=== PATIENT | male | born 1990 | race Caucasian/White ===

== ENCOUNTER 2025-07-25 12:49 | Inpatient (IN) | payer MEDICAID, SELFPAY ==
--- NOTE | 2025-07-25 | XR_ITS ---
Examinations: MRI Brain without intravenous contrast. MRA brain without intravenous contrast. MRA carotids without intravenous contrast 3-D vascular reconstructions Date and time of exam: July 25, 2025, 1845 hrs. Indication: Dizziness and balance issues this week, CT stroke alert today Technique: Multiple axial and sagittal images of the brain have been obtained MRA brain carotid images without contrast obtained, including 3-D postprocessing, vascular maximum intensity projection images Findings: Sellaturcica is not enlarged. The optic chiasm and infundibular stalk are not remarkable. Prepontine and interpeduncular cisterns are not enlarged. No localized enlargement of the medulla or estuardo. Fourth ventricle and cerebellar tonsils normal in position. Subacute hemorrhage is not seen. Fourth ventricle is midline. Mass in the cerebellopontine angle region is not evident. 7th and 8th nerve complexes exhibits symmetry. Globes are symmetrical with no retro-orbital mass. Increased white matter signal evident, a few scattered punctate foci of increased signal in the cerebral white matter and adjacent to the right frontal horn Diffusion-weighted images demonstrate no focus of restricted diffusion Mass-effect upon the ventricular system is not identified. MRA carotid images no carotid stenoses. MRA brain images no cerebral large vessel occlusions Impression: Negative for acute hemorrhage, mass effect or midline shift No acute infarct Scattered foci increased signal in the cerebral white matter, demyelinating disease pattern, recommend neurology consultation and correlation with clinical findings No carotid stenoses No cerebral large vessel arterial occlusions
[2025-07-25 12:58] VITALS: BP 119/95; PULSE 89; PULSE 96; RESP 18; TEMP 36.6; O2SAT 99
--- NOTE | 2025-07-25 12:58 | XR_ITS ---
Examination: CTA carotids with intravenous contrast CTA brain, head with intravenous contrast. 2-D sagittal, coronal reconstructions. 3-D reconstructions. Exam date and time: July 25, 2025 1321 hours INDICATIONS: Stroke alert today, onset focal neurologic deficit including altered mental status, slurred speech CTDI: vol (mGy) 47.9 DLP: (mGycm) 514 Technique: Multiple CTA axial brain, head carotid images post intravenous contrast injection 75 cc, Isovue-370. 2-D sagittal, coronal reconstructions. 3-D reconstructions, 3-D post processing including vascular maximum intensity projection images. Low dose protocols were performed. One or more of the following dose reduction techniques were used; automated exposure control, adjustment of the mA and/or KV according to patient size, use of iterative reconstruction technique. Findings: No significant common carotid carotid bifurcation or internal carotid artery stenoses Dominant left vertebral artery in the neck with no critical stenoses No cerebral large vessel arterial occlusions or thrombus IMPRESSION: No significant neck arterial stenoses No cerebral large vessel arterial occlusions or thrombus
--- NOTE | 2025-07-25 12:58 | XR_ITS ---
Examination: CT brain head without contrast. 2-D sagittal coronal reconstructions Date and time of exam:July 25, 2025 1310 hours, comparison October 01, 2022 INDICATIONS: Stroke alert, onset focal neurologic deficit today including slurred speech CTDI: vol (mGy):55.3 DLP: (mGycm):1141 Technique: Multiple CT axial sections of the brain have been obtained, 5 mm slice thickness. Contrast has not been administered. 2-D sagittal, coronal reconstructions have been obtained Low dose protocols were performed. One or more of the following dose reduction techniques were used; automated exposure control, adjustment of the mA and/or KV according to patient size, use of iterative reconstruction technique. Findings: No significant ventricular enlargement. Intra-axial or extra-axial hemorrhage density is not seen. No mass effect or midline shift Basal cisterns are not remarkable. Fourth ventricle is midline. Cranial vault intact. Impression: Negative for acute hemorrhage, mass effect or midline shift
[2025-07-25 12:59] VITALS: BMI 31.8
[2025-07-25 13:08] VITALS: PULSE 83; RESP 16; O2SAT 98
--- NOTE | 2025-07-25 13:12 | EDNOTE_ITS ---
ED Weakness RME/HPI General Chief complaint: Weakness Stated complaint: WEAKNESS Time Seen by Provider: 07/25/25 12:58 Arrival date/time: 07/25/25 12:49 Limitations: no limitations RME / HPI RME / HPI Narrative: 35 year old male with history of hypothyroidism, schizoaffective disorder presents to the ED BIBA from [facility] for evaluation of new onset global weakness, lethargy, dizziness, and off-balance beginning ~ 1.5 hours [employer]. Per caregiver/staff, the patient was at his usual state of health at 08:30 AM today prior to going to work. States when he returned at 11:30 AM, the patient required assistance walking. State at baseline the patient is able to ambulate without assistance. Caregiver mentioned the patient is on multiple psychiatric medications and evaluated by on-site provider (Dr. Esparza) who was concerned for anticholinergic syndrome. Related Data Allergies Allergy/AdvReac Type Severity Reaction Status Date / Time nystatin Allergy Verified 10/01/22 20:44 Penicillins Allergy Verified 10/01/22 20:44 Review of Systems Review of Systems Systems Reviewed: All systems reviewed, normal except as documented Past Medical History Past Medical History CARDIAC: Positive Hypercholesterolemia ENDOCRINE: Positive Hypothyroidism PSYCHO/SOCIAL: Positive Schizophrenia and Bipolar Disorder Social History SMOKING STATUS: Unknown if ever smoked ED Exam General Limitations: Present no limitations General appearance: Present alert, in no apparent distress and other (patient noted to have trouble supporting his trunk and leaning to the left side ) Head Head exam: Present atraumatic and normocephalic Eye Eye exam: Present normal appearance, PERRL and EOMI ENT ENT exam: Present normal exam, normal oropharynx and mucous membranes moist Neck Neck exam: Present normal inspection, full ROM and trachea midline Chest Chest inspection: Present normal inspection and symmetric chest wall rise Respiratory Respiratory exam: Present normal lung sounds bilaterally Cardiovascular Cardiovascular exam: Present regular rate, normal rhythm and normal heart sounds Abdominal Exam Abdominal exam: Present soft and normal bowel sounds Extremities Exam Extremities exam: Present normal inspection and full ROM Back Exam Back exam: Present normal inspection and full ROM Neurological Exam Neurological exam: Present alert (oriented x1), CN II-XII intact and other (answers questions, bilateral tremors, strength of upper and lower extremities are 5/5, did not test DTR or sensory, patient noted to have trouble supporting his trunk and leaning to the left side ) Skin Skin exam: Present warm, dry, intact and normal color Course Quality Measures Suspected type of Stroke: Non Acute Last known well (date): 07/25/25 Last known well (time): 08:30 Tenecteplase given: Reason(s) TPA not given: Outside the time window not given stroke Orders Category Date Time Status Bedside Blood Glucose NOW Care 07/25/25 12:58 Active Eyeglass Frames Polisher NOW Care 07/25/25 12:58 Active Continuous Pulse Oximetry NOW Care 07/25/25 12:58 Completed Insert IV NOW Care 07/25/25 12:58 Active NIH Stroke Scale now Care 07/25/25 12:58 Active NPO NOW Care 07/25/25 12:58 Active Neuro Check Q15MIN Care 07/25/25 12:58 Active Nurse Swallow Screen x1 Care 07/25/25 12:58 Active Consult to Neurology / Tele-Neurology Routine Cons 07/25/25 12:[address] angio stroke protocol Stat Exams 07/25/25 12:[address] stroke protocol Stat Exams 07/25/25 12:58 Completed Alcohol, Blood Medical Stat Lab 07/25/25 13:03 Received CBC Stat Lab 07/25/25 13:03 Completed Comprehensive Metabolic Panel Stat Lab 07/25/25 13:03 Received Drug Screen,Urine Stat Lab 07/25/25 12:58 Ordered Magnesium Stat Lab 07/25/25 13:03 Received Partial Thromboplastin Time Stat Lab 07/25/25 13:03 Completed Prothrombin Time with INR Stat Lab 07/25/25 13:03 Completed Troponin I Stat Lab 07/25/25 13:03 Received Urinalysis Stat Lab 07/25/25 12:58 Ordered Sodium Chloride 0.9% 1000 ml [Ns] 1,000 ml Med 07/25/25 13:00 Active IV Q10H Vital Signs Vital signs: Vital Signs Pulse Rate 89 07/25/25 12:58 Weakness MDM Narrative MDM Narrative:: Jesenia Mckeon am scribing for and in the presence of Dr. Thurman. 35 year old male with history of hypothyroidism, schizoaffective disorder presents to the ED BIBA from [facility] for evaluation of new onset global weakness, lethargy, dizziness, and off-balance beginning ~ 1.5 hours [employer]. Patient was last known well at 08:30AM and returned to [facility] at 11:30 AM where they noted the symptoms. Patient is on multiple psych medications and symptoms today could be anticholinergic syndrome due to medications vs metabolic encephalopathy vs CVA. Patient data External records reviewed:: [facility] previous records (I reviewed ED visit on 10/01/2022 ) and EMS form Clinical information provided by:: patient, EMS and restaurant lead Social determinants that could affect healthcare access:: mental health Patient has the following chronic illnesses:: hypothyroidism, schizoaffective disorder How is presenting disease/condition affected by chronic disease/condition?: exacerbated by Evaluation data The following diagnostics were reviewed and interpreted by me:: lab results and radiology exam(s) Lab and/or radiology exams considered but not ordered:: None Interpretation Summary: Ordering Physician: Mingo Thurman MD Date of Service: 07/25/25 Procedure(s): CT stroke protocol Accession Number(s): [id number] cc: Mingo Thurman MD; Yogi Pavon MD~ Examination: CT brain head without contrast. 2-D sagittal coronal reconstructions Date and time of exam:July 25, 2025 1310 hours, comparison October 01, 2022 INDICATIONS: Stroke alert, onset focal neurologic deficit today including slurred speech CTDI: vol (mGy):55.3 DLP: (mGycm):1141 Technique: Multiple CT axial sections of the brain have been obtained, 5 mm slice thickness. Contrast has not been administered. 2-D sagittal, coronal reconstructions have been obtained Low dose protocols were performed. One or more of the following dose reduction techniques were used; automated exposure control, adjustment of the mA and/or KV according to patient size, use of iterative reconstruction technique. Findings: No significant ventricular enlargement. Intra-axial or extra-axial hemorrhage density is not seen. No mass effect or midline shift Basal cisterns are not remarkable. Fourth ventricle is midline. Cranial vault intact. Impression: Negative for acute hemorrhage, mass effect or midline shift Dictated By: Yogi Pavon MD Signed By: <Electronically signed by Yogi Pavon MD in OV> 07/25/25 1315 Ordering Physician: Mingo Thurman MD Date of Service: 07/25/25 Procedure(s): CT angio stroke protocol Accession Number(s): [id number] cc: Mingo Thurman MD; Yogi Pavon MD~ Examination: CTA carotids with intravenous contrast CTA brain, head with intravenous contrast. 2-D sagittal, coronal reconstructions. 3-D reconstructions. Exam date and time: July 25, 2025 1321 hours INDICATIONS: Stroke alert today, onset focal neurologic deficit including altered mental status, slurred speech CTDI: vol (mGy) 47.9 DLP: (mGycm) 514 Technique: Multiple CTA axial brain, head carotid images post intravenous contrast injection 75 cc, Isovue-370. 2-D sagittal, coronal reconstructions. 3-D reconstructions, 3-D post processing including vascular maximum intensity projection images. Low dose protocols were performed. One or more of the following dose reduction techniques were used; automated exposure control, adjustment of the mA and/or KV according to patient size, use of iterative reconstruction technique. Findings: No significant common carotid carotid bifurcation or internal carotid artery stenoses Dominant left vertebral artery in the neck with no critical stenoses No cerebral large vessel arterial occlusions or thrombus IMPRESSION: No significant neck arterial stenoses No cerebral large vessel arterial occlusions or thrombus Dictated By: Yogi Pavon MD Signed By: <Electronically signed by Yogi Pavon MD in OV> 07/25/25 1340 Medications / Prescriptions Medications or Prescriptions considered but not ordered:: None Medication administrations:: Medication Administration History Sodium Chloride (Ns) 1,000 mls @ 50 mls/hr IV Q10H KRISTEN Stop: 08/24/25 12:59 See above Consultations Consultation(s) initiated? (list below): Yes Consultation #1 (Physician, Specialty, Details): I spoke with teleneurologist Dr. Cole. States patient is not a TNK candidate, LKW > 4.5 hours. States a posterior stroke cannot be ruled out and recommends MRI brain. Also recommends toxic/metabolic work-up. Time: 13:47 Diagnosis Weakness Differential Diagnosis: hypoglycemia, hypothyroidism, sepsis, dehydration and other (CVA) Most likely diagnosis given after review of the tests above:: CVA vs TIA Admission Indicated Admission indicated?: indicated Admission Request Was there a request for admission?: Yes Admission Attestation Admission request attestation: Discussed case with [] from Hospitalist service regarding admission. Discussed patients ED course, exam findings, labs, and radiology results. The Hospitalist [agrees,declines] to accept the patient for admission. Disposition Plan Disposition Plan: Admit Discharge Plan Plan Patient Disposition: Admit Acute Care w/in Hospital Problem List Clinical Impression: CVA (cerebral vascular accident) Patient/Caregiver Discharge Instructions Print Language: Estonian Stand Alone Forms: Jaleesa Award Info., Patient Portal Info Letter
[2025-07-25 13:24] LABS: Basophils # (Auto) 0.1 Thou/mm3 (0.0-0.2); Basophils % (Auto) 1 % (0-2.5); Eosinophils # (Auto) 0.3 Thou/mm3 (0.0-0.5); Eosinophils % (Auto) 4 % (0-10); Hematocrit 43.1 % (41.0-53.0); Hemoglobin 13.8 g/dL (13.5-16.0); Immature Granulocytes Auto 0.03 Thou/mm3 (0.00-0.00); Lymphocytes # (Auto) 1.2 Thou/mm3 (1.0-4.8); Lymphocytes % (Auto) 16 % (10-50); Mean Corpuscular HGB Conc 32.0 g/dl (31.0-37.0); Mean Corpuscular Hemoglobin 30.4 pg (25.0-35.0); Mean Corpuscular Volume 95 fL (80-100); Monocytes # (Auto) 0.7 Thou/mm3 (0.0-0.8); Monocytes % (Auto) 10 % (0-12); Neutrophils # (Auto) 4.9 Thou/mm3 (1.8-7.7); Neutrophils % (Auto) 69 % (37-80); Nucleated Red Blood Cell # 0.00 Thou/mm3 (0.00-0.00); Nucleated Red Blood Cell % 0 /100 WBC (0); Platelet Count 176 Thou/mm3 (140-440); RDW Standard Deviation 42.9 fL (35.1-43.9); Red Blood Count 4.54 Miln/mm3 (4.50-5.90); White Blood Count 7.2 Thou/mm3 (3.8-10.6)
--- NOTE | 2025-07-25 13:38 | PD.TNEURO ---
Tele Neuro Consultation Consultation Date 07/25/25 Most Recent Vital Signs Last Vital Signs Pulse 89 07/25/25 12:58 Consultation Narrative [facility] Tele[facility]urology Consult Services Patient Name:???ERNESTINE WOOTEN Date of :???1990 Identification Number:??? Date of Service:???07/25/2025 13:01:00 Diagnosis:?G93.49 - Encephalopathy Multifactorial ?I63.81 - Cerebrovascular accident (CVA) due to occlusion of small artery Impression: ?Pt presents with acute onset dizziness causing imbalance and altered mental status since this morning. He is outside the time window for thrombolytics. Clinical picture is consistent with toxic/metabolic etiology particularly given negative myoclonus seen on non-focal examination. Of note, pt's physician at his facility suspects Ach crisis. Cannot completely rule out acute posterior circulation compromise. Therefore would recommend MRI brain to rule out acute ischemia alongside toxic/metabolic work-up. Our recommendations are outlined below. Recommendations: ? Stroke/Telemetry Floor ? Neuro Checks (Q4) ? Bedside Swallow Eval ? DVT Prophylaxis ? IV Fluids, Normal Saline ? Head of Bed 30 Degrees ? Euglycemia and Avoid Hyperthermia (PRN Acetaminophen) ? Initiate or continue Aspirin 81 MG daily ? Antihypertensives PRN if Blood pressure is greater than 220/120 or there is a concern for End organ damage/contraindications for permissive HTN. If blood pressure is greater than 220/120 give labetalol PO or IV or Vasotec IV with a goal of 15% reduction in BP during the first 24 hours. Sign Out: ? Discussed with Emergency Department Provider Advanced Imaging:CTA Head and Neck Completed. LVO:No Patient is not a candidate for TSERING Metrics: Last Known Well: 07/25/2025 08:30:13 Dispatch Time: 07/25/2025 13:00:59 Arrival Time: 07/25/2025 12:29:33 Initial Response Time: 07/25/2025 13:02:50Symptoms: dizziness, unsteady gait and altered mental status. Initial patient interaction: 07/25/2025 13:12:23 NIHSS Assessment Completed: 07/25/2025 13:15:53Patient is not a candidate for Thrombolytic. Thrombolytic Medical Decision: 07/25/2025 13:15:54Patient was not deemed candidate for Thrombolytic because of following reasons: LKW outside 4.5 hr window. . other diagnosis suspected toxic/metabolic encephalopathy suspected. CT Head: I personally reviewed all the CT images that were available to me and it showed: no hemorrhage, no acute findings per radiology Primary Provider Notified of Diagnostic Impression and Management Plan on: 07/25/2025 13:52:01 History of Present Illness:Patient is a 35 year old Male. Patient was brought by EMS for symptoms of dizziness, unsteady gait and altered mental status. Pt is coming from a intermediate for cognitive delay. He is a 35M h/o schizoaffective d/o. Today he experienced new onset dizziness, imbalance and decreased level of consciousness. The doctor at the intermediate has a concern for anticholinergic OD. LKW 8:30am pt had to come back early from the group he was in. Upon arrival due to dizziness that is new, stroke alert was called. Pt has never had a stroke before. Pt reports that he's here because of foot pain. The facility physician reports that pt leans to the L at baseline, the etiology is unknown. Pt does report persistent vertigo since this AM that is not resolving. ? Past Medical History: ?Migraine Headaches ?There is no history of Hypertension ?There is no history of Diabetes Mellitus ?There is no history of Hyperlipidemia ?There is no history of Atrial Fibrillation ?There is no history of Coronary Artery Disease ?There is no history of Stroke ?There is no history of Seizures Other PMH:? hypothyroidism ?schizoaffective disorder Medications: No Anticoagulant use? No Antiplatelet use Reviewed EMR for current medications Other Medications Pertinent To Assessment Include: levothyroixine, citalopram, clorazapine, depkote, Li, olanzapine, benztropine, loratidine Allergies:? NKDA Social History: Smoking: No Alcohol Use: No Drug Use: No Family History: There is no family history of premature cerebrovascular disease pertinent to this consultation ROS : 14 Points Review of Systems was performed and was negative except mentioned in HPI. Past Surgical History: There Is No Surgical History Contributory To Today?s Visit ? Examination: BP(118/76),?Pulse(88),?Blood Glucose(88) 1A: Level of Consciousness - Arouses to minor stimulation?+ 1 1B: Ask Month and Age - Could Not Answer Either Question Correctly?+ 2 1C: Blink Eyes & Squeeze Hands - Performs Both Tasks?+ 0 2: Test Horizontal Extraocular Movements - Normal?+ 0 3: Test Visual Luna - No Visual Loss?+ 0 4: Test Facial Palsy (Use Grimace if Obtunded) - Normal symmetry?+ 0 5A: Test Left Arm Motor Drift - No Drift for 10 Seconds?+ 0 5B: Test Right Arm Motor Drift - No Drift for 10 Seconds?+ 0 6A: Test Left Leg Motor Drift - No Drift for 5 Seconds?+ 0 6B: Test Right Leg Motor Drift - No Drift for 5 Seconds?+ 0 7: Test Limb Ataxia (FNF/Heel-Jensen) - No Ataxia?+ 0 8: Test Sensation - Normal; No sensory loss?+ 0 9: Test Language/Aphasia - Normal; No aphasia?+ 0 10: Test Dysarthria - Normal?+ 0 11: Test Extinction/Inattention - No abnormality?+ 0 NIHSS Score:?3 NIHSS Free Text :?negative myoclunus ?lethargic ?confused ?unsteady gait, truncal instability leaning to the L Pre-Morbid Modified [place] Scale: 1 Points = No significant disability despite symptoms; able to carry out all usual duties and activities Spoke with :?Dr Thurman This consult was conducted in real time using interactive audio and video technology. Patient was informed of the technology being used for this visit and agreed to proceed. Patient located in hospital and provider located at home/office setting. Patient is being evaluated for possible acute neurologic impairment and high probability of imminent or life-threatening deterioration. I spent total of 35 minutes providing care to this patient, including time for face to face visit via telemedicine, review of medical records, imaging studies and discussion of findings with providers, the patient and/or family. Dr Niecy Cole [facility] For Inpatient follow-up with [facility] physician please call [facility] at . As we are not an outpatient service for any post hospital discharge needs please contact the hospital for assistance. If you have any questions for the [facility] physicians or need to reconsult for clinical or diagnostic changes please contact us via [facility] at . Signature :Qi Cole ?
[2025-07-25 13:39] LABS: INR 1.0 (0.9-1.3); Partial Thromboplastin Time 24.5 Seconds (22.0-36.0); Prothrombin Time 11.1 Seconds (9.0-12.2)
[2025-07-25 13:52] LABS: Alanine Aminotransferase 21 U/L (10-49); Albumin, Serum 5.2 gm/dL (3.5-5.0); Albumin/Globulin Ratio 2.3 (1.2-2.2); Alcohol, Blood Medical < 3.0 mg/dL (0-10.0); Alkaline Phosphatase 61 U/L (46-116); Anion Gap 10 (7-16); Aspartate Amino Transferase 21 U/L (0-34); BUN/Creatinine Ratio 8 Ratio (12-20); Bilirubin,Total 0.4 mg/dL (0.3-1.2); Blood Urea Nitrogen 8 mg/dL (9-23); Calcium 10.4 mg/dL (8.3-10.6); Calcium (Corrected) 10.4 mg/dL (8.5-10.1); Carbon Dioxide 23.8 mMol/L (20.0-31.0); Chloride 107 mMol/L (98-107); Creatinine (Component) 1.0 mg/dL (0.6-1.3); Estimated Creatinine Clearance 130.1 mL/min (>60); Globulin 2.3 gm/dL (2.3-3.5); Glucose 91 mg/dL (74-106); Magnesium 2.4 mg/dL (1.6-2.6); Osmolality,Calculated 279 (275-295); Potassium 4.1 mMol/L (3.4-5.1); Sodium 141 mMol/L (136-145); Total Protein 7.5 gm/dL (5.7-8.2); Troponin I < 0.002 ng/mL (0.0-0.045); eGFR > 60 See Note
[2025-07-25] MEDS: SODIUM CHLORIDE 0.9% 1000 ML 1,000 ML 50 ML IV ×2 (14:00→23:19)
[2025-07-25] MEDS: MIDAZOLAM INJ 1 MG/ML VIAL 2 ML IVP (14:05)
[2025-07-25 14:18] VITALS: BP 126/79; PULSE 109; RESP 19; TEMP 37.2; O2SAT 97
--- NOTE | 2025-07-25 15:05 | ECHO_ITS ---
Transthoracic Echo Report Ht (in): 72 Wt (lb): 231 Exam Location: Echo Lab Status: Inpatient Optical Effects Line Up Person: Annie Martínez Indications: Procedure Performed: BP: 121 / 76 HR: Technical Quality: Technically difficult study MEASUREMENTS (Male / Female) Normal Values 2D ECHO LV Diastolic Diameter PLAX 4.9 cm 4.2 - 5.9 / 3.9 - 5.3 cm LV Systolic Diameter PLAX 3.6 cm IVS Diastolic Thickness 0.8 cm 0.6 - 1.0 / 0.6 - 0.9 cm LVPW Diastolic Thickness 1.0 cm 0.6 - 1.0 / 0.6 - 0.9 cm LV Relative Wall Thickness 0.4 LVOT Diameter 2.5 cm Aortic Root Diameter 3.8 cm LV Ejection Fraction MOD BP 56.7 % >= 55 % LV Ejection Fraction MOD 4C 56.2 % LV Ejection Fraction 4C AL 57.8 % LV Ejection Fraction MOD 2C 63.1 % LV Ejection Fraction 2C AL 65.0 % LA Volume Index 12.4 cm?/m? 16 - 28 cm?/m? DOPPLER AV Peak Velocity 80.3 cm/s AV Peak Gradient 2.6 mmHg AV Mean Gradient 1.0 mmHg AV Velocity Time Integral 16.2 cm LVOT Peak Velocity 65.8 cm/s LVOT Peak Gradient 1.7 mmHg LVOT Velocity Time Integral 16.0 cm AV Area Cont Eq vti 4.8 cm? AV Area Cont Eq pk 4.0 cm? MV Area PHT 5.2 cm? Mitral E Point Velocity 52.4 cm/s Mitral A Point Velocity 68.9 cm/s Mitral E to A Ratio 0.8 LV E' Lateral Velocity 19.0 cm/s Mitral E to LV E' Lateral Ratio 2.8 LV E' Septal Velocity 11.3 cm/s Mitral E to LV E' Septal Ratio 4.6 FINDINGS Left Ventricle Normal left ventricular size, wall thickness, systolic function with no obvious regional wall motion abnormalities. The ejection fraction is visually estimated at 55-60 %. There is grade I diastolic dysfunction of the left ventricle Right Ventricle The right ventricular size is mildy increased with normal systolic function. Left Atrium The left atrium is normal by two-dimensional, color flow and Doppler imaging with no structural abnormalities, no thrombus formation present. Right Atrium The right atrium is normal by two-dimensional imaging, color flow and Doppler imaging with no structural abnormalities, no thrombus formation present. Atrial Septum The interatrial septum appears normal with no evidence of a shunt. Aorta The aorta is normal by two-dimensional, color flow and Doppler interrogation. Mitral Valve The mitral valve is normal by two-dimensional, color flow and Doppler interrogation. Trace mitral regurgitation. Aortic Valve The aortic valve is trileaflet and normal by two-dimensional, color flow and Doppler interrogation. There is no significant aortic valve regurgitation. Tricuspid Valve The tricuspid valve is normal by two-dimensional, color flow and Doppler interrogation. There is trace tricuspid valve regurgitation. Pulmonic Valve The pulmonic valve is not well visualized. There is no significant pulmonic valve regurgitation. Vessels The pulmonary artery appears normal. The inferior vena cava pulmonary and hepatic veins appear normal. Pericardium The pericardium is normal by two-dimensional imaging. There is no significant pericardial effusion. CONCLUSIONS Indication: stroke r/o with bubble study Negative bubble study. No evidence of PFO No evidence intracardiac thrombi or intracardiac shunts. Normal LV size and wall thickness. Estimated EF at 55-60 %. There is grade I diastolic dysfunction. The RV size is mildy increased with normal systolic function. Deidre Molina (Electronically Signed) Final Date: 30 July 2025 17:51
--- NOTE | 2025-07-25 15:10 | ESHP_ITS ---
Documentation for date of: 07/25/25 HPI History of Present Illness Chief complaint: Dizziness History of present illness: 35-year-old male with past medical history of schizoaffective disorder, psychiatric issues unspecified at this time, hypothyroidism, hyperlipidemia presenting to the ED on 07/25 from [facility] for an episode of dizziness and off balance. At bedside, there is patient's interior design director and officer; apparently patient has been placed at [facility] from a court order unsure at this time exactly why. Patient apparently had an episode where he leaned over to the left side and had a fall which was witnessed and he did not lose consciousness. Physician at the [facility] noted and chart that patient apparently could be going through an anticholinergic episode. Patient did response to questions but mumbles his answers and only answers in couple words. According to interior design director at bedside, patient is usually talkative and smart but apparently gets aggressive. Medical history: As stated above Surgical history: Denies Allergies: Nystatin penicillin Medications: Pending official med rec, patient on olanzapine, clozapine, benztropine, lithium, citalopram and levothyroxine Family history: Unable to assess Social history: Patient currently lives at the [facility] unsure exactly why, court ordered. No history of smoking tobacco, alcohol or drug use noted, patient's decision maker is Dr. Perez at [facility] ROS: Positive for left foot pain, denies any other significant symptoms based off 12 systems assessed In the ED, Patient presented with normotension, mild tachycardia with a heart rate peaking at 109, regular respiratory rate, afebrile satting 99 on room air. Labs were largely unremarkable, EKG had not been completed prior to admission. U tox was negative for any acute findings and salicylate levels were low, acetaminophen level is low and lithium levels were low at 0.88. Stroke alert was initiated and teleneurologist was able to see the patient, NIH score of 3. Patient CT of the head along with CTA of head and neck were negative for any acute findings. Patient will be admitted for acute encephalopathy likely secondary to drug interaction versus possible ischemic stroke in the posterior area, will obtain MRI brain and follow-up with neurology recommendations. Exam Vital Signs Temp Pulse Resp BP Pulse Ox O2 Del Method 98.9 F 109 H 19 126/79 97 Room Air 07/25/25 14:18 07/25/25 14:18 07/25/25 14:18 07/25/25 14:18 07/25/25 14:18 07/25/25 14:18 Narrative Exam Physical Exam: GENERAL: Awake, answering questions appropriately but mumbles answers, appears stated age HEENT: NC/AT. Moist mucosa. PERRLA/EOMI. CARDIO: Heart RRR, no obvious murmurs, no JVD. PULM: No coughing or visible SOB. Lungs CTA B/L. GI: Abdomen soft, NT/ND, +BS. SKIN/MSK/EXT: No wounds/discoloration/rashes/edema/amputations noted. +Pedal pulses present B/L. NEURO: Oriented x2 (person and time but not to place close), cranial nerves II to XII grossly intact, muscle strength 4 out of 4 on bilateral upper and lower extremities, unable to assess sensation as patient is not willing to comply, pronator drift negative, [id number] testing negative, rapid alternating movements positive, patient unable to complete, [id number] positive Results: Labs 07/25/25 13:03 07/25/25 13:03 Labs: Short CBC 07/25/25 Range/Units 13:03 WBC 7.2 (3.8-10.6) Thou/mm3 Hgb 13.8 (13.5-16.0) g/dL Hct 43.1 (41.0-53.0) % Plt Count 176 (140-440) Thou/mm3 BMP 07/25/25 13:03 Sodium 141 Potassium 4.1 Chloride 107 Carbon Dioxide 23.8 BUN 8 L Creatinine 1.0 Glucose 91 Calcium 10.4 Cardiac Enzymes 07/25/25 Range/Units 13:03 Troponin I < 0.002 (0.0-0.045) ng/mL Liver Function 07/25/25 Range/Units 13:03 Total Bilirubin 0.4 (0.3-1.2) mg/dL AST 21 (0-34) U/L ALT 21 (10-49) U/L Alkaline Phosphatase 61 (46-116) U/L Albumin 5.2 H (3.5-5.0) gm/dL Quality Measures Quality Measures stroke Suspected type of Stroke: Non Acute Last known well (date): 07/25/25 Last known well (time): 08:30 Tenecteplase given: Reason(s) Tenecteplase not given: Outside the time window not given Rehab services: PT evaluation ordered VTE Prophylaxis: pharmaceutical Antithrombotic by day 2:: ordered Statin ordered: <75 y/o high intensity dose Anticoagulation ordered for A-fib or flutter (current or hx): not indicated Medications Home Medications and Allergies Home Medications ?Medication ?Instructions ?Recorded ?Confirmed ?Type acetaminophen 325 mg tablet 325 mg PO Q6H PRN fever or pain 07/25/25 07/25/25 History atorvastatin 20 mg PO DAILY 07/25/2507/15 History atropine 0.01 % eye drops drp ophthalmic (eye) 5 History benztropine 1 mg tablet 1 mg PO BID 07/25/25 5 History citalopram 20 mg tablet 20 mg PO QDAY 07/25/2507/25 History clozapine 200 mg tablet 200 mg PO DAILY 07/25/2510/08 History clozapine 50 mg tablet 50 mg PO DAILY 07/25/2507/15 History divalproex 500 mg tablet,delayed 500 mg PO BID 5 07/25/25 History release docusate sodium 100 mg tablet 100 mg PO TID 07/25/25 0 07/25/25 History famotidine 20 mg tablet 20 mg PO BID 07/25/25 History fluticasone propionate 50 1 spray intranasal QDAY PRN 07/25/25 07/25/25 History mcg/actuation nasal allergy symptoms spray,suspension (Allergy Relief (fluticasone)) levothyroxine 75 mcg capsule 75 mcg PO QDAY 07/25/25 0 07/25/25 History lithium carbonate 300 mg tablet 900 mg PO QDAY 5 07/25/25 History loratadine 10 mg tablet 10 mg PO QDAY 07/25/2507/25 History magnesium hydroxide 400 mg/5 mL 30 ml PO QDAY PRN cons tipation 07/25/25 07/25/25 History oral suspension (Milk of Magnesia) olanzapine 10 mg tablet 10 mg PO QDAY 07/25/2507/25 History olopatadine 0.1 % eye drops 1 drp ophthalmic (eye) BID 07/25/25 07/25/25 History Allergies Allergy/AdvReac Type Severity Reaction Status Date / Time nystatin Allergy Verified 10/01/22 20:44 Penicillins Allergy Verified 10/01/22 20:44 Visit Medications Acetaminophen (Acetaminophen 325 Mg Tablet) 650 mg PO Q6H PRN PRN Reason: PAIN SCALE 1-3 (mild Stop: 08/24/25 15:03 Heparin Sodium (Porcine) (Heparin Sod Inj 5000 Unit/Ml Vial) 5,000 unit SC Q12HR KRISTEN Stop: 08/08/25 20:59 Sodium Chloride (Ns) 1,000 mls @ 50 mls/hr IV Q10H KRISTEN Stop: 08/24/25 12:59 Last Admin: 07/25/25 14:00 Dose: 50 mls/hr Sennosides (Senna Tablet) 1 tab PO QDAY PRN; Protocol PRN Reason: constipation Stop: 08/24/25 15:03 Discontinued Medications Aspirin (Aspirin 325 Mg Tablet) 325 mg PO X1 ONE Stop: 07/25/25 13:50 Last Admin: 07/25/25 14:04 Dose: 325 mg Midazolam HCl (Midazolam Inj 1 Mg/Ml Vial 2 Ml) 1 mg IVP X1 ONE Stop: 07/25/25 13:50 Last Admin: 07/25/25 14:05 Dose: 1 mg Assessment & Plan Plan 35-year-old male with past medical history of schizoaffective disorder, psychiatric issues unspecified at this time, hypothyroidism, hyperlipidemia presenting to the ED on 07/25 from [facility] for an episode of dizziness and off balance will be admitted for acute encephalopathy likely secondary to drug interaction versus possible ischemic stroke in the posterior area, will obtain MRI brain and follow-up with neurology recommendations. #Acute encephalopathy #Concern for polypharmacy #Stroke rule out #Sinus tachycardia As stated above, patient presented with episode of fall and dizziness [facility] physician concerned about possible anticholinergic syndrome/toxicity as the patient is on clozapine and benztropine On examination, patient does not have symptoms or signs of anticholinergic syndrome Teleneurology consulted, at bedtime score of 3 CT head and CTA of the head and neck negative for any acute findings Salicylate and acetaminophen levels within normal limits Poison control made aware, low suspicion for anticholinergic syndrome as the patient does not have clinical signs additionally if there were signs it would be GI symptoms which the patient does not have Plan: Pending EKG results Follow-up on MRI brain Neurology consulted, appreciate recommendations As needed antihypertensives blood pressure greater than 220/105 Aspirin and statin initiated Physical therapy and speech eval ordered Head of bed greater than 30, euglycemic and euthermic parameters #Schizoaffective disorder? #Psychiatric history As noted above, patient has a court ordered to be placed at [facility], unsure exactly why at this time Patient on several medications including benztropine 1 mg p.o. at bedtime, citalopram 20 mg p.o. daily Clozapine 250 mg p.o. daily Divalproex 500 mg p.o. twice daily [place] 900 mg p.o. daily and olanzapine 10 mg p.o. daily [place] levels low at 0.88 Plan: Will reinitiate lithium levels with morning labs Restarted home medications #Hypothyroidism Chronic medical condition Patient on home 75 mcg of levothyroxine Plan: Restart home medication Pending TSH and T4 levels #Hypercalcemia Differentials include: PTH dependent (parathyroid adenoma, HCC) versus PTH independent (vitamin D toxicity, lymphoma/sarcoma), possible drug interaction/adverse event Electrolyte abnormality noted on CMP Corrected calcium of 10.4 Plan: Will order PTH with morning labs Gentle IV fluid resuscitation 75 cc an hour of LR Health Maintenance: Lines: PIV Diet: Cardiac if passes swallow screen Bowel: Senna as needed GI prophylaxis: Not needed DVT prophylaxis: Heparin subcu Dispo: Pending stroke rule out, neurology recommendations Code: Full Patient seen and assessed with attending Dr. Jose Luis Ruff, DO PGY-2 Internal Medicine - GME Attending Provider Attestation/Addendum I attest that I was physically present for the evaluation, physical examination, lab and imaging review of the patient with the residents. I discussed the case with the residents and agree with the findings and plans of care as documented above. After examination of the patient and review of the clinical data I feel that this patient needs admission to the hospital for further treatment/evaluation. Patient is a 35 years old male with past medical history of seizure affective disorder, hypothyroidism, hyperlipidemia, other possible psychiatric issues who presented to the ED from [facility] with complaint of episode of dizziness, impaired balance, lethargy. Patient is a poor historian, HPI obtained from interior design director at bedside. As per the interior design director, patient had an episode where he was leaning towards the left side and had a fall. He did not lose consciousness. Patient was evaluated by physician at [facility] who was concerned about anticholinergic episode and patient was brought to the ED. At bedside, patient is alert but appears tired and is only mumbling answers. Was able to follow some simple commands. Oriented x 2. He was unable to perform rapid alternating movements and [id number] test. Muscle strength appears equal bilaterally, Slightly decreased than normal. Stroke alert was also called in the ED and teleneurology was consulted, recommended further workup including brain MRI. We will admit the patient for further workup and management of acute encephalopathy, polypharmacy and stroke rule out. Discussed with poison control, stated that patient's presentation less likely to be anticholinergic syndrome. We will obtain urine toxicology, acetaminophen, salicylate, alcohol, lithium levels. We will also obtain EKG, brain MRI, physical therapy, speech therapy, echocardiography. We will also obtain in-house neurology consult. Patient has been started on aspirin and statin. We will resume his home antipsychotic medications. We will continue his levothyroxine and obtain thyroid function test. Patient noted to have mild hypercalcemia, we will obtain PTH level and start him on gentle IV William Amaya MD
[2025-07-25 15:22] LABS: Collection Type, Urine Catheter; Squamous Epithelial Cell,Urine 0 /hpf (0-5); WBC,Urine 0 /hpf (0-5)
[2025-07-25 15:32] LABS: Bilirubin,Urine Negative (Negative); Blood,Urine Negative (Negative); Clarity,Urine Clear (Clear/Hazy); Color,Urine Colorless (Lt Yel-Yel); Glucose, Urine Negative (Negative); Ketones,Urine Negative (Negative); Leukocyte Esterase,Urine Negative (Negative); Nitrite,Urine Negative (Negative); PH,Urine 8.0 (5.0-7.0); Protein,Urine Negative (Neg - Trace); RBC,Urine < 1 /hpf (0-3); Specific Gravity,Urine 1.023 (1.001-1.035); Urobilinogen,Urine Negative mg/dL (0.0-1.0)
--- NOTE | 2025-07-25 15:32 | PD.RESCONSUL ---
HPI Data of Consult Consult date: 07/25/25 Requesting Physician: William Amaya MD Admitting Provider: William Amaya MD Attending Provider: William Amaya MD Primary Care Provider: Physician No Primary/Family Consult Narrative Reason for consult: Stroke versus cholinergic crisis History of present illness: This patient is a 35-year-old male with past medical history of hypothyroidism, schizoaffective disorder presented from [facility] for evaluation of new onset weakness, lethargy and dizziness with balance problem beginning 1.5 hours [employer]. Per caregiver, patient last well-known time was 8:30 AM prior to going to work. While she returned to see the patient at 11:30 AM patient required assistance. At baseline, patient ambulates without assistance. Patient is on multiple psychiatric medications and is evaluated by Dr. Esparza who was initially concern for anticholinergic syndrome. Past medical history as above Past surgical history: Not significant SH: Denies smoking, drinking alcohol or illicit drug use Allergies: NKDA Home medications: Clozapine, citalopram 200mg twice a day, atorvastatin 20 mg , levothyroxine 75 mcg , Divaloproex 500 mg twice daily, lithium carbonate 900 mg once daily, benztropine 1 mg twice daily, olanzapine 10 mg once daily, loratadine, docusate and famotidine 20 mg Labs revealed stable white count and hemoglobin. Chemistry panel was unremarkable. Kidney functions showed creatinine 1.0. GFR above 60. Corrected calcium 10.4. Troponin I was negative. Urinalysis is pending. U tox, Tylenol, salicylates levels pending. EtOH negative. Head CT showed no acute findings. Head and neck CTA was negative for neck arterial stenosis or LVO. In the ED, patient received Versed 1 mg IV x 1, aspirin bolus 325 mg x 1 and bolus of normal saline 1 L. Patient was seen and examined at the bedside. Patient's caregiver was also present at the bedside. She reported that patient started having new onset weakness and was not able to walk and was feeling lethargic and confused. Patient fell but did not hit his head on the ground. His baseline is AO x 3. Presently, he is AO x 1. He was also feeling dizzy and clammy. Patient was having tremors of upper extremity. He appears to have weakness in right upper extremity and left lower extremity however has good strength. Recommended to continue aspirin 81 mg with statin therapy. Will follow-up with MRI brain without contrast and echo with bubble study. Will likely perform EEG to rule out seizure. cc:: cc: William Amaya MD Review of Systems Review of Systems ROS Unobtainable: unobtainable due to medical condition Past Medical History Past Medical History CARDIAC: Positive Hypercholesterolemia ENDOCRINE: Positive Hypothyroidism PSYCHO/SOCIAL: Positive Schizophrenia and Bipolar Disorder Social History SMOKING STATUS: Unknown if ever smoked Exam Vital Signs Temp Pulse Resp BP Pulse Ox O2 Del Method 98.9 F 109 H 19 126/79 97 Room Air 07/25/25 14:18 07/25/25 14:18 07/25/25 14:18 07/25/25 14:18 07/25/25 14:18 07/25/25 14:18 Narrative Exam GENERAL APPEARANCE: Patient is alert and oriented x 1. Saturating well on room air. HEENT: NC, AT. MMM. EOMI, clear conjunctiva, oropharynx clear. NECK: Supple without lymphadenopathy. No stiffness or restricted ROM. HEART: Normal rate and regular rhythm, normal S1/S2, no m/r/g LUNGS: CTAB, moving air well. No crackles or wheezes are heard. ABDOMEN: Soft, nontender, nondistended with good bowel sounds heard. BACK: No CVAT, no obvious deformity. EXTREMITIES: Bilateral tremors, strength in upper and lower extremity 5/5. NEUROLOGICAL: Grossly nonfocal. Alert and oriented x 1.Trouble supporting his trunk and leading to left side.strength in upper and lower extremity 5/5. Skin: Warm and dry without any rash. Results Labs 07/25/25 13:03 07/25/25 13:03 Labs: Short CBC 07/25/25 Range/Units 13:03 WBC 7.2 (3.8-10.6) Thou/mm3 Hgb 13.8 (13.5-16.0) g/dL Hct 43.1 (41.0-53.0) % Plt Count 176 (140-440) Thou/mm3 BMP 07/25/25 13:03 Sodium 141 Potassium 4.1 Chloride 107 Carbon Dioxide 23.8 BUN 8 L Creatinine 1.0 Glucose 91 Calcium 10.4 Cardiac Enzymes 07/25/25 Range/Units 13:03 Troponin I < 0.002 (0.0-0.045) ng/mL Liver Function 07/25/25 Range/Units 13:03 Total Bilirubin 0.4 (0.3-1.2) mg/dL AST 21 (0-34) U/L ALT 21 (10-49) U/L Alkaline Phosphatase 61 (46-116) U/L Albumin 5.2 H (3.5-5.0) gm/dL Quality Measures Quality Measures stroke Suspected type of Stroke: Non Acute Last known well (date): 07/25/25 Last known well (time): 08:30 Tenecteplase given: Reason(s) Tenecteplase not given: Outside the time window not given Rehab services: PT evaluation ordered VTE Prophylaxis: pharmaceutical Antithrombotic by day 2:: not indicated (describe) Statin ordered: <75 y/o high intensity dose Anticoagulation ordered for A-fib or flutter (current or hx): not indicated Medications Home Medications and Allergies Home Medications ?Medication ?Instructions ?Recorded ?Confirmed ?Type acetaminophen 325 mg tablet 650 mg PO Q6H PRN fever or pain 07/25/25 07/25/25 History atorvastatin 20 mg PO DAILY 07/25/25 07/25/25 History atropine 0.01 % eye drops 1 drp ophthalmic (eye) TID prevent 07/25/25 07/25/25 History drooling benztropine 1 mg tablet 1 mg PO BID 07/25/25 07/25/25 History citalopram 20 mg tablet 20 mg PO QDAY 07/25/25 07/25/25 History clozapine 200 mg tablet 200 mg PO BID 07/25/25 07/25/25 History clozapine 50 mg tablet 50 mg PO DAILY 07/25/25 07/25/25 History divalproex 500 mg tablet,delayed 500 mg PO BID 07/25/25 07/25/25 History release docusate sodium 100 mg tablet 100 mg PO TID 07/25/25 07/25/25 History famotidine 20 mg tablet 20 mg PO BID 07/25/25 07/25/25 History fluticasone propionate 50 1 spray intranasal QDAY PRN 07/25/25 07/25/25 History mcg/actuation nasal allergy symptoms spray,suspension (Allergy Relief (fluticasone)) levothyroxine 75 mcg capsule 75 mcg PO QDAY 07/25/25 07/25/25 History lithium carbonate 300 mg tablet 900 mg PO QDAY 07/25/25 07/25/25 History loratadine 10 mg tablet 10 mg PO QDAY 07/25/25 07/25/25 History magnesium hydroxide 400 mg/5 mL 30 ml PO QDAY PRN constipation 07/25/25 07/25/25 History oral suspension (Milk of Magnesia) olanzapine 10 mg tablet 10 mg PO QDAY 07/25/25 07/25/25 History olopatadine 0.1 % eye drops 1 drp ophthalmic (eye) BID 07/25/25 07/25/25 History Allergies Allergy/AdvReac Type Severity Reaction Status Date / Time nystatin Allergy Verified 10/01/22 20:44 Penicillins Allergy Verified 10/01/22 20:44 Visit Medications Acetaminophen (Acetaminophen 325 Mg Tablet) 650 mg PO Q6H PRN PRN Reason: PAIN SCALE 1-3 (mild Stop: 08/24/25 15:03 Benztropine Mesylate (Benztropine 0.5 Mg Tablet) 1 mg PO HS KRISTEN Stop: 08/24/25 20:59 Citalopram Hydrobromide (Citalopram 20 Mg Tablet) 20 mg PO QDAY KRISTEN Stop: 08/25/25 08:59 Clozapine (Clozapine 50 Mg Tablet) 250 mg PO QDAY KRISTEN Stop: 08/25/25 08:59 Divalproex Sodium (Divalproex Sod Dr 500 Mg Tablet.Dr) 500 mg PO BID KRISTEN Stop: 08/24/25 20:59 Heparin Sodium (Porcine) (Heparin Sod Inj 5000 Unit/Ml Vial) 5,000 unit SC Q12HR KRISTEN Stop: 08/08/25 20:59 Sodium Chloride (Ns) 1,000 mls @ 50 mls/hr IV Q10H KRISTEN Stop: 08/24/25 12:59 Last Admin: 07/25/25 14:00 Dose: 50 mls/hr Levothyroxine Sodium (Levothyroxine Sodium 25 Mcg Tablet) 75 mcg PO ACBR KRISTEN Stop: 08/25/25 05:59 Aiea Carbonate (Aiea Carb 150 Mg Capsule) 900 mg PO QDAY KRISTEN Stop: 08/25/25 08:59 Olanzapine (Olanzapine 5 Mg Tablet) 10 mg PO QDAY KRISTEN Stop: 08/25/25 08:59 Sennosides (Senna Tablet) 1 tab PO QDAY PRN; Protocol PRN Reason: constipation Stop: 08/24/25 15:03 Discontinued Medications Aspirin (Aspirin 325 Mg Tablet) 325 mg PO X1 ONE Stop: 07/25/25 13:50 Last Admin: 07/25/25 14:04 Dose: 325 mg Midazolam HCl (Midazolam Inj 1 Mg/Ml Vial 2 Ml) 1 mg IVP X1 ONE Stop: 07/25/25 13:50 Last Admin: 07/25/25 14:05 Dose: 1 mg Assessment & Plan Plan This patient is a 35-year-old male with past medical history of hypothyroidism, schizoaffective disorder presented from [facility] for evaluation of new onset weakness, lethargy and dizziness with balance problem beginning 1.5 hours [employer]. Per caregiver, patient last well-known time was 8:30 AM prior to going to work. While she returned to see the patient at 11:30 AM patient required assistance. At baseline, patient ambulates without assistance. Patient is on multiple psychiatric medications and is evaluated by Dr. Esparza who was initially concern for anticholinergic syndrome. #Workup for stroke #? Cholinergic crisis vs medications side effect Patient presented with balance problem and dizziness started at 8:30 AM and was noted by caregiver at 11:30 AM. Patient was out of window for tPA administration. Patient is on multiple psychiatric medications for schizoaffective disorder and there was a concern for cholinergic crisis. -Patient's caregiver was also present at the bedside. She reported that patient started having new onset weakness and was not able to walk and was feeling lethargic and confused. Patient fell but did not hit his head on the ground. His baseline is AO x 3. He was also feeling dizzy and clammy. Patient was having tremors of upper extremity. He appears to have weakness in right upper extremity and left lower extremity however has good strength. Plan: Continue aspirin 81 mg once daily and statin Follow-up with MRI brain without contrast and echo with bubble study Performed EEG to rule out seizure. Neurochecks Q4 hourly Allowing permissive hypertension for first 24 hours Antihypertensives PRN if Blood pressure is greater than 220/120 or there is a concern for End organ damage/contraindications for permissive HTN. If blood pressure is greater than 220/120 give labetalol PO or IV or Vasotec IV with a goal of 15% reduction in BP during the first 24 hours Monitor Qtc and avoid Qtc prolonging agents There can be drug interaction between clozapine and citalopram can cause QTc prolongation, arrhythmias, worsening seizures and psychomotor impairment #Schizoaffective disorder Rest of the management as per primary care team. Plan of care discussed with neurologist, Dr Mary Grace Jimenez MD, PGY 3
[2025-07-25 15:41] LABS: Acetaminophen < 2.0 mcg/mL (10.0-20.0); Salicylate < 3.0 mg/dL
[2025-07-25 15:44] LABS: Amphetamine/Methamp Scrn,U Negative (Negative); Barbiturate Screen,Urine Negative (Negative); Benzodiazepines Screen,Urine Negative (Negative); Benzoylecgonine Screen, Ur Negative (Negative); Fentanyl Screen,Urine Negative (Negative); Opiate Screen,Urine Negative (Negative); THC Screen,Urine Negative (Negative)
[2025-07-25 15:52] LABS: Lithium 0.88 mEq/L (1.00-1.20)
[2025-07-25 15:53] VITALS: BP 129/87; PULSE 16; PULSE 98; RESP 18; TEMP 37.1; O2SAT 97
[2025-07-25 16:55] VITALS: BP 122/84; PULSE 103; RESP 15; TEMP 36.4; O2SAT 98
[2025-07-25 16:58] LABS: Free T4 (Free Thyroxine) 1.31 ng/dL (0.89-1.76); Thyroid Stimulating Hormone 3.48 uIU/mL (0.55-4.78)
[2025-07-25 20:00] VITALS: BP 115/71; PULSE 94; PULSE 95; RESP 21; TEMP 36.3; O2SAT 99
[2025-07-25] MEDS: ACETAMINOPHEN 325 MG TABLET 650 MG PO (21:01)
[2025-07-25] MEDS: DIVALPROEX SOD DR 500 MG TABLET.DR PO (21:02)
[2025-07-25] MEDS: BENZTROPINE 0.5 MG TABLET 1 MG PO (21:02)
[2025-07-25] MEDS: ATORVASTATIN CALCIUM 20 MG TABLET 40 MG PO (21:02)
--- NOTE | 2025-07-25 21:48 | XR_ITS ---
Examination: Foot, left, 3 views Technique: AP, oblique, lateral views foot, 3 views Date and time of exam: July 25, 2025 2155 hrs. Indications: Injury to the foot today, foot pain. Findings: Acute fractures bases of metatarsals without significant displacement No foreign bodies Impression: Acute fractures base metatarsal
[2025-07-26] VITALS: BP 119/68; PULSE 83; PULSE 84; RESP 18; TEMP 36.5; O2SAT 99
[2025-07-26 03:48] LABS: Basophils # (Auto) 0.1 Thou/mm3 (0.0-0.2); Basophils % (Auto) 1 % (0-2.5); Eosinophils # (Auto) 0.5 Thou/mm3 (0.0-0.5); Eosinophils % (Auto) 6 % (0-10); Hematocrit 37.1 % (41.0-53.0); Hemoglobin 12.2 g/dL (13.5-16.0); Immature Granulocytes Auto 0.03 Thou/mm3 (0.00-0.00); Lymphocytes # (Auto) 1.7 Thou/mm3 (1.0-4.8); Lymphocytes % (Auto) 21 % (10-50); Mean Corpuscular HGB Conc 32.9 g/dl (31.0-37.0); Mean Corpuscular Hemoglobin 31.3 pg (25.0-35.0); Mean Corpuscular Volume 95 fL (80-100); Monocytes # (Auto) 1.2 Thou/mm3 (0.0-0.8); Monocytes % (Auto) 15 % (0-12); Neutrophils # (Auto) 4.7 Thou/mm3 (1.8-7.7); Neutrophils % (Auto) 57 % (37-80); Nucleated Red Blood Cell # 0.00 Thou/mm3 (0.00-0.00); Nucleated Red Blood Cell % 0 /100 WBC (0); Platelet Count 168 Thou/mm3 (140-440); RDW Standard Deviation 43.9 fL (35.1-43.9); Red Blood Count 3.90 Miln/mm3 (4.50-5.90); White Blood Count 8.2 Thou/mm3 (3.8-10.6)
[2025-07-26 04:00] VITALS: BP 114/68; PULSE 80; RESP 20; TEMP 36.6; O2SAT 94
[2025-07-26 04:06] LABS: Parathyroid Hormone Intact 36.7 pg/ml (18.5-88.0)
[2025-07-26 04:07] LABS: Anion Gap 11 (7-16); BUN/Creatinine Ratio 5 Ratio (12-20); Blood Urea Nitrogen 5 mg/dL (9-23); Carbon Dioxide 21.4 mMol/L (20.0-31.0); Chloride 110 mMol/L (98-107); Creatinine (Component) 1.0 mg/dL (0.6-1.3); Estimated Creatinine Clearance 130.1 mL/min (>60); Glucose 96 mg/dL (74-106); Potassium 3.9 mMol/L (3.4-5.1); Sodium 142 mMol/L (136-145); eGFR > 60 See Note
[2025-07-26 04:08] LABS: Calcium 9.3 mg/dL (8.3-10.6); Cardiac Risk Estimate 3.2 RATIO (4.0-6.7); Cholesterol 129 mg/dL (132-200); HDL Cholesterol 40 mg/dL (40-60); LDL Cholesterol,Calculated 64 mg/dL (0-130); Osmolality,Calculated 280 (275-295); Triglycerides 127 mg/dL (30-150)
[2025-07-26 04:09] LABS: Glucose Estimated Average 100 mg/dL (80-131); Hemoglobin A1C 5.1 % Hgb (4.8-6.0); Lithium 0.51 mEq/L (1.00-1.20)
[2025-07-26] MEDS: LEVOTHYROXINE SODIUM 25 MCG TABLET 75 MCG PO (05:14)
[2025-07-26 05:48] VITALS: BMI 31.8
--- NOTE | 2025-07-26 07:32 | EKG_ITS ---
[facility] Test Date: 2025-07-26 Pat Name: ERNESTINE WOOTEN [facility] Gender[facility] Male Library Helper: DOROTHEA : 1990 Requested By: Gabo Ruff Order Number: [id number] Reading MD: Gabo Ruff Measurements Intervals [place] Rate: 84 P: 57 OR: 140 QRS: -5 QRSD: 118 T: 32 QT: 393 QTc: 466 Interpretive Statements SINUS RHYTHM MODERATE INTRAVENTRICULAR CONDUCTION DELAY NONSPECIFIC ST & T-WAVE ABNORMALITY No previous ECG available for comparison /store/S0/[id number]
[2025-07-26 08:00] VITALS: BP 115/61; PULSE 77; PULSE 92; RESP 19; TEMP 36.7; O2SAT 97
--- NOTE | 2025-07-26 09:05 | PC.SS ---
Follow up note: Echo pending. Pt is from [facility] and will return upon dc.
[2025-07-26] MEDS: LITHIUM CARB 150 MG CAPSULE 900 MG PO (09:21)
[2025-07-26] MEDS: DIVALPROEX SOD DR 500 MG TABLET.DR PO ×2 (09:21→20:32)
[2025-07-26] MEDS: CITALOPRAM 20 MG TABLET PO (09:21)
[2025-07-26] MEDS: ASPIRIN EC 81 MG TABEC PO (09:21)
[2025-07-26] MEDS: BENZTROPINE 0.5 MG TABLET 1 MG PO ×2 (09:21→20:32)
[2025-07-26] MEDS: HEPARIN SOD INJ 5000 UNIT/ML VIAL SC (09:23)
--- NOTE | 2025-07-26 10:08 | RESP.EEG ---
EEG complete and ready to read
[2025-07-26 12:00] VITALS: BP 121/81; PULSE 90; RESP 23; TEMP 36.5; O2SAT 97
--- NOTE | 2025-07-26 15:04 | PD.RESPRO ---
Documentation for date of: 07/26/25 Subjective Subjective Interval history: Overnight patient had a left foot x-ray which shows a acute fracture of the left fifth metatarsal; moreover, otherwise no concerning overnight events to report. Patient seen and assessed in hospital bed without any concerning findings. Patient's brain MRI is negative for any acute ischemic stroke present but however, there is signs of demyelinating disease. Neurology is on board, awaiting recommendations. Patient's echo with bubble studies pending. Regarding patient's acute fracture, contacted orthopedic surgeon for possible consultation. Orthopedist believes that the patient does not require surgery and could be managed outpatient with podiatry consultation and boot placement. Exam Vital Signs Temp Pulse Resp BP Pulse Ox O2 Del Method 97.7 F 90 23 H 121/81 97 Room Air 07/26/25 12:00 07/26/25 12:00 07/26/25 12:00 07/26/25 12:00 07/26/25 12:00 07/26/25 12:00 Narrative Exam Physical Exam: GENERAL: Awake, answering questions appropriately but mumbles answers, appears stated age HEENT: NC/AT. Moist mucosa. PERRLA/EOMI. CARDIO: Heart RRR, no obvious murmurs, no JVD. PULM: No coughing or visible SOB. Lungs CTA B/L. GI: Abdomen soft, NT/ND, +BS. SKIN/MSK/EXT: Left foot mildly swollen with mild ecchymosis on the lateral aspect. No wounds/discoloration/rashes/edema/amputations noted. +Pedal pulses present B/L. NEURO: Oriented x2 (person and time but not to place close), cranial nerves II to XII grossly intact, muscle strength 4 out of 4 on bilateral upper and lower extremities, unable to assess sensation as patient is not willing to comply, pronator drift negative, [id number] testing negative, rapid alternating movements positive, patient unable to complete, [id number]-[id number] positive Objective Labs 07/27/25 04:48 07/27/25 04:48 Labs: Laboratory Results - last 24 hr 07/25/25 07/25/25 07/25/25 13:03 13:03 13:03 WBC RBC Hgb Hct MCV MCH MCHC RDW Std Deviation Plt Count Neut % (Auto) Lymph % (Auto) [place] % (Auto) Eos % (Auto) Baso % (Auto) Neut # (Auto) Lymph # (Auto) [place] # (Auto) Eos # (Auto) Baso # (Auto) Immature Gran # (Auto) Absolute Nucleated RBC Immature Gran % Nucleated RBC % Sodium Potassium Chloride Carbon Dioxide Anion Gap BUN Creatinine Estim Creat Clear Calc eGFR BUN/Creatinine Ratio Glucose Estimated Ave Glu mg/dL Hemoglobin A1c Calculated Osmolality Calcium Triglycerides Cholesterol LDL Cholesterol, Calc HDL Cholesterol Cholesterol/HDL Ratio TSH 3.48 Cancelled Free T4 1.31 Cancelled PTH Intact Ur Collection Type Urine Color Urine Clarity Urine pH Ur Specific [place] Urine Protein Urine Glucose (UA) Urine Ketones Urine Blood Urine Nitrite Urine Bilirubin Urine Urobilinogen (Auto) Ur Leukocyte Esterase Urine RBC Urine WBC Ur Squamous Epith Cells Urine Bacteria Salicylates < 3.0 Urine Opiates Screen Urine Fentanyl Screen Acetaminophen < 2.0 L Ur Barbiturates Screen U Amphetamin/Meth Scrn U Benzodiazepines Scrn [place] 0.88 L U Cocaine Metab Screen U Marijuana (THC) Screen 07/25/25 07/26/25 15:10 03:24 WBC 8.2 RBC 3.90 L Hgb 12.2 L Hct 37.1 L MCV 95 MCH 31.3 MCHC 32.9 RDW Std Deviation 43.9 Plt Count 168 Neut % (Auto) 57 Lymph % (Auto) 21 [place] % (Auto) 15 H Eos % (Auto) 6 Baso % (Auto) 1 Neut # (Auto) 4.7 Lymph # (Auto) 1.7 [place] # (Auto) 1.2 H Eos # (Auto) 0.5 Baso # (Auto) 0.1 Immature Gran # (Auto) 0.03 H Absolute Nucleated RBC 0.00 Immature Gran % 0 Nucleated RBC % 0 Sodium 142 Potassium 3.9 Chloride 110 H Carbon Dioxide 21.4 Anion Gap 11 BUN 5 L Creatinine 1.0 Estim Creat Clear Calc 130.1 eGFR > 60 BUN/Creatinine Ratio 5 L Glucose [address] Glu mg/dL 100 Hemoglobin A1c 5.1 Calculated Osmolality 280 Calcium 9.3 Triglycerides 127 Cholesterol 129 L LDL Cholesterol, Calc 64 HDL Cholesterol 40 Cholesterol/HDL Ratio 3.2 L TSH Free T4 PTH Intact 36.7 Ur Collection Type Catheter Urine Color Colorless A Urine Clarity Clear Urine pH 8.0 H Ur Specific [place] 1.023 Urine Protein Negative Urine Glucose (UA) Negative Urine Ketones Negative Urine Blood Negative Urine Nitrite Negative Urine Bilirubin Negative Urine Urobilinogen (Auto) Negative Ur Leukocyte Esterase Negative Urine RBC < 1 Urine WBC 0 Ur Squamous Epith Cells 0 Urine Bacteria None Salicylates Urine Opiates Screen Negative Urine Fentanyl Screen Negative Acetaminophen Ur Barbiturates Screen Negative U Amphetamin/Meth Scrn Negative U Benzodiazepines Scrn Negative [place] 0.51 L U Cocaine Metab Screen Negative U Marijuana (THC) Screen Negative Quality Measures Quality Measures stroke Suspected type of Stroke: Non Acute Last known well (date): 07/25/25 Last known well (time): 08:30 Tenecteplase given: Reason(s) Tenecteplase not given: Outside the time window not given Rehab services: PT evaluation ordered VTE Prophylaxis: pharmaceutical Antithrombotic by day 2:: ordered Statin ordered: <75 y/o high intensity dose Anticoagulation ordered for A-fib or flutter (current or hx): not indicated Assessment & Plan Assessment Current Active Medications: Generic Name Dose Route Start Last Admin Trade Name Freq PRN Reason Stop Dose Admin Acetaminophen 650 mg 07/25/25 15:04 07/25/25 21:01 Acetaminophen 325 Mg Tablet PO 08/24/25 15:03 650 mg Q6H PRN Administration PAIN SCALE 1-3 (mild Aspirin 81 mg 07/26/25 09:00 07/26/25 09:21 Aspirin Ec 81 Mg Tabec PO 08/25/25 08:59 81 mg QDAY KRISTEN Administration Atorvastatin Calcium 40 mg 07/25/25 21:00 07/25/25 21:02 Atorvastatin Calcium 20 Mg Tablet PO 08/24/25 20:59 40 mg HS KRISTEN Administration Benztropine Mesylate 1 mg 07/25/25 21:00 07/26/25 09:21 Benztropine 0.5 Mg Tablet PO 08/24/25 20:59 1 mg BID KRISTEN Administration Citalopram Hydrobromide 20 mg 07/26/25 09:00 07/26/25 09:21 Citalopram 20 Mg Tablet PO 08/25/25 08:59 20 mg QDAY KRISTEN Administration Clozapine 50 mg 07/26/25 09:00 07/26/25 10:08 Clozapine 50 Mg Tablet PO 08/25/25 08:59 50 mg QAM KRISTEN Administration Clozapine 200 mg 07/25/25 21:00 07/26/25 10:08 Clozapine 50 Mg Tablet PO 08/24/25 20:59 200 mg BID KRISTEN Administration Divalproex Sodium 500 mg 07/25/25 21:00 07/26/25 09:[address] 500 Mg Tablet.Dr PO 08/24/25 20:59 500 mg BID KRISTEN Administration Heparin Sodium (Porcine) 5,000 unit 07/25/25 21:00 07/26/25 09:23 Heparin Sod Inj 5000 Unit/Ml Vial SC 08/08/25 20:59 5,000 unit Q12HR KRISTEN Administration Sodium Chloride 1,000 mls @ 50 mls/hr 07/25/25 13:00 07/25/25 23:19 Ns IV 08/24/25 12:59 50 mls/hr Q10H KRISTEN Administration Labetalol HCl 10 mg 07/25/25 16:00 Labetalol Inj 5 Mg/Ml Vial 20 Ml IVP 08/24/25 15:59 Q2HR PRN SBP>220 Protocol Levothyroxine Sodium 75 mcg 07/26/25 06:00 07/26/25 05:14 Levothyroxine Sodium 25 Mcg Tablet PO 08/25/25 05:59 75 mcg ACBR KRISTEN Administration [place] Carbonate 900 mg 07/26/25 09:00 07/26/25 09:21 [place] Carb 150 Mg Capsule PO 08/25/25 08:59 900 mg QDAY KRISTEN Administration Olanzapine 10 mg 07/26/25 09:00 07/26/25 09:21 Olanzapine 5 Mg Tablet PO 08/25/25 08:59 10 mg QDAY KRISTEN Administration Sennosides 1 tab 07/25/25 15:04 Senna Tablet PO 08/24/25 15:03 QDAY PRN constipation Protocol Plan 35-year-old male with past medical history of schizoaffective disorder, psychiatric issues unspecified at this time, hypothyroidism, hyperlipidemia presenting to the ED on 07/25 from [facility] for an episode of dizziness and off balance will be admitted for acute encephalopathy likely secondary to drug interaction versus possible ischemic stroke in the posterior area, will obtain MRI brain and follow-up with neurology recommendations. #Acute encephalopathy #Concern for polypharmacy #Stroke rule out #Sinus tachycardia As stated above, patient presented with episode of fall and dizziness [facility] physician concerned about possible anticholinergic syndrome/toxicity as the patient is on clozapine and benztropine On examination, patient does not have symptoms or signs of anticholinergic syndrome Teleneurology consulted, at bedtime score of 3 CT head and CTA of the head and neck negative for any acute findings Salicylate and acetaminophen levels within normal limits Poison control made aware, low suspicion for anticholinergic syndrome as the patient does not have clinical signs additionally if there were signs it would be GI symptoms which the patient does not have EKG shows sinus rhythm with QTc of 460 MRI brain negative for any acute infarct, demyelinating pattern noted Plan: Neurology consulted, appreciate recommendations As needed antihypertensives blood pressure greater than 220/105 Aspirin and statin initiated Physical therapy and speech eval Head of bed greater than 30, euglycemic and euthermic parameters #Schizoaffective disorder? #Psychiatric history As noted above, patient has a court ordered to be placed at [facility], unsure exactly why at this time Patient on several medications including benztropine 1 mg p.o. at bedtime, citalopram 20 mg p.o. daily Clozapine 250 mg p.o. daily Divalproex 500 mg p.o. twice daily [place] 900 mg p.o. daily and olanzapine 10 mg p.o. daily [place] levels low at 0.88 Plan: Continue home medications Follow-up on ammonia, valproate level #Acute fracture of left fifth metatarsal Patient had a fall as described in HPI X-ray confirms fracture of the left fifth metatarsal Orthopedic surgery recommended against surgery and that it could be managed outpatient with podiatry and boot placement Plan: Follow-up outpatient Pain management with Tylenol #Hypothyroidism Chronic medical condition Patient on home 75 mcg of levothyroxine TSH of 3.48 and free T4 of 1.31 Plan: Continue home medication #Hypercalcemia, improving Differentials include: PTH dependent (parathyroid adenoma, HCC) versus PTH independent (vitamin D toxicity, lymphoma/sarcoma), possible drug interaction/adverse event Electrolyte abnormality noted on CMP Corrected calcium of 10.4 PTH of 36 within normal limits Plan: Follow-up outpatient for parathyroid adenoma versus [facility] Health Maintenance: Lines: PIV Diet: Cardiac Bowel: Senna as needed GI prophylaxis: Not needed DVT prophylaxis: Heparin subcu Dispo: Pending echo, neurology recommendations regarding demyelinating pattern noted on MR Code: Full Patient seen and assessed with attending Dr. Jose Luis Ruff, DO PGY-2 Internal Medicine - GME Attending Provider Attestation/Addendum I attest that I was physically present for the evaluation, lab and imaging review of the patient with the residents. I discussed the case with the residents and agree with the findings and plans of care as documented above. Overnight, foot x-ray was obtained as patient complained of pain, showed acute fractures of left fifth metatarsal. MRI brain did not show any acute ischemic CVA but shows lesions concerning for demyelinating disease. Discussed with orthopedic surgeon, recommended outpatient podiatry consultation and boot placement, no surgical intervention currently, appreciate recommendations. Toxicology screening including salicylate and acetaminophen level are within normal limits. [place] level noted to be subtherapeutic. Ordered valproic acid level and ammonia level. Continues to be on aspirin and statin. Awaiting echocardiography, EEG, neurology recommendations. We will continue with his home medication and continue to monitor mentation closely. William Amaya MD
--- NOTE | 2025-07-26 15:13 | PC.PT ---
PT eval only. Patient was xI with bed mobility, transfers, and ambulation with a FWW. Patient is safe to ambulate to the bathroom and in the halls with 1 [facility] staff at bedside and a FWW to attempt PWB on the L foot. RN made aware.
--- NOTE | 2025-07-26 16:13 | PC.SS ---
Pt is from [facility] unit #[id number]. SS met with patient and his caregiver, Marce from [facility] regarding patient's d/c plan. Pt is alert/oriented. Pt was admitted for Stroke R/O. Caregiver confirmed demographic and contact information is correct on facesheet. Pt ambulates independently without assistance or DME. Pt is ok with all ADLs. Pt utilizes pharmacy at [facility]. SS called patient's unit and spoke to [facility] who provided Shipping Hand's phone# [phone] to obtain information about patient's medical decision maker. SS called [facility] Shipping Hand but was only able to leave voicemail. Patient will return to [facility] upon d/c and [facility] staff will provide transportation. Dr. Horace Perez is the [employer] from [facility]. D/C plan: Return to [facility] Next of Kin: Contact Shipping Hand at [facility] [phone] PCP: Dr. Horace Perez Address: Correct on facesheet
[2025-07-26] MEDS: SODIUM CHLORIDE 0.9% 1000 ML 1,000 ML 50 ML IV (17:33)
[2025-07-26 20:00] VITALS: BP 110/75; PULSE 99; RESP 18; TEMP 36.5; O2SAT 96
--- NOTE | 2025-07-26 20:30 | PC.NURSE ---
marzena childers called, pt was throwing water and stuff from the bedside table to sitters. Pt was cooperative once security guards got in the room. Pt was calmed when senior mortgage underwriter got in the room to give him his night time meds.
[2025-07-26] MEDS: ATORVASTATIN CALCIUM 20 MG TABLET 40 MG PO (20:32)
[2025-07-26] MEDS: MELATONIN 3 MG TABLET PO (20:32)
--- NOTE | 2025-07-26 23:56 | ESPR_ITS ---
Documentation for date of: 07/26/25 Exam - Neurology Vital Signs Temp Pulse Resp BP Pulse Ox O2 Del Method 97.7 F 99 18 110/75 96 Room Air 07/26/25 20:00 07/26/25 20:00 07/26/25 20:00 07/26/25 20:00 07/26/25 20:00 07/26/25 20:00 Objective Labs 07/26/25 03:24 07/26/25 03:24 Labs: Laboratory Results - last 24 hr 07/26/25 03:24 WBC 8.2 RBC 3.90 L Hgb 12.2 L Hct 37.1 L MCV 95 MCH 31.3 MCHC 32.9 RDW Std Deviation 43.9 Plt Count 168 Neut % (Auto) 57 Lymph % (Auto) 21 [place] % (Auto) 15 H Eos % (Auto) 6 Baso % (Auto) 1 Neut # (Auto) 4.7 Lymph # (Auto) 1.7 Chambers # (Auto) 1.2 H Eos # (Auto) 0.5 Baso # (Auto) 0.1 Immature Gran # (Auto) 0.03 H Absolute Nucleated RBC 0.00 Immature Gran % 0 Nucleated RBC % 0 Sodium 142 Potassium 3.9 Chloride 110 H Carbon Dioxide 21.4 Anion Gap 11 BUN 5 L Creatinine 1.0 Estim Creat Clear Calc 130.1 eGFR > 60 BUN/Creatinine Ratio 5 L Glucose [address] Glu mg/dL 100 Hemoglobin A1c 5.1 Calculated Osmolality 280 Calcium 9.3 Triglycerides 127 Cholesterol 129 L LDL Cholesterol, Calc 64 HDL Cholesterol 40 Cholesterol/HDL Ratio 3.2 L PTH Intact 36.7 Hughes 0.51 L
[2025-07-27] VITALS: PULSE 81
--- NOTE | 2025-07-27 01:33 | PC.NURSE ---
[facility] RN informed parts data writer that [facility] supervisor lime requested labs to check procal and ammonia levels, Dr. Dubose was made aware of request made by [facility] community relations police lieutenant.
[2025-07-27 04:00] VITALS: BP 100/61; PULSE 77; PULSE 85; RESP 17; TEMP 36.4; O2SAT 97
[2025-07-27 05:03] LABS: Basophils # (Auto) 0.1 Thou/mm3 (0.0-0.2); Basophils % (Auto) 2 % (0-2.5); Eosinophils # (Auto) 0.6 Thou/mm3 (0.0-0.5); Eosinophils % (Auto) 10 % (0-10); Hematocrit 38.2 % (41.0-53.0); Hemoglobin 12.2 g/dL (13.5-16.0); Immature Granulocytes Auto 0.02 Thou/mm3 (0.00-0.00); Lymphocytes # (Auto) 1.9 Thou/mm3 (1.0-4.8); Lymphocytes % (Auto) 30 % (10-50); Mean Corpuscular HGB Conc 31.9 g/dl (31.0-37.0); Mean Corpuscular Hemoglobin 30.2 pg (25.0-35.0); Mean Corpuscular Volume 95 fL (80-100); Monocytes # (Auto) 0.8 Thou/mm3 (0.0-0.8); Monocytes % (Auto) 12 % (0-12); Neutrophils # (Auto) 3.0 Thou/mm3 (1.8-7.7); Neutrophils % (Auto) 47 % (37-80); Nucleated Red Blood Cell # 0.00 Thou/mm3 (0.00-0.00); Nucleated Red Blood Cell % 0 /100 WBC (0); Platelet Count 171 Thou/mm3 (140-440); RDW Standard Deviation 43.8 fL (35.1-43.9); Red Blood Count 4.04 Miln/mm3 (4.50-5.90); White Blood Count 6.4 Thou/mm3 (3.8-10.6)
[2025-07-27 05:24] LABS: Ammonia 65 uMol/L (11-32)
[2025-07-27 05:32] LABS: Anion Gap 10 (7-16); BUN/Creatinine Ratio 8 Ratio (12-20); Blood Urea Nitrogen 6 mg/dL (9-23); Calcium 9.2 mg/dL (8.3-10.6); Carbon Dioxide 21.0 mMol/L (20.0-31.0); Chloride 111 mMol/L (98-107); Creatinine (Component) 0.8 mg/dL (0.6-1.3); Estimated Creatinine Clearance 162.6 mL/min (>60); Glucose 103 mg/dL (74-106); Osmolality,Calculated 280 (275-295); Potassium 3.8 mMol/L (3.4-5.1); Procalcitonin 0.07 ng/ml (0.0-0.49); Sodium 142 mMol/L (136-145); eGFR > 60 See Note
[2025-07-27 06:00] VITALS: BMI 31.8
[2025-07-27] MEDS: LEVOTHYROXINE SODIUM 25 MCG TABLET 75 MCG PO (06:01)
[2025-07-27 08:00] VITALS: BP 99/58; PULSE 75; PULSE 88; RESP 18; TEMP 36.3; O2SAT 96
[2025-07-27] MEDS: HEPARIN SOD INJ 5000 UNIT/ML VIAL SC (08:17)
[2025-07-27] MEDS: LITHIUM CARB 150 MG CAPSULE 900 MG PO (08:17)
[2025-07-27] MEDS: ASPIRIN EC 81 MG TABEC PO (08:17)
[2025-07-27] MEDS: DIVALPROEX SOD DR 500 MG TABLET.DR PO (08:17)
[2025-07-27] MEDS: BENZTROPINE 0.5 MG TABLET 1 MG PO ×2 (08:17→20:02)
[2025-07-27] MEDS: CITALOPRAM 20 MG TABLET PO (08:17)
--- NOTE | 2025-07-27 08:21 | EKG_ITS ---
[facility] Test Date: 2025-07-27 Pat Name: ERNESTINE WOOTEN [facility] Gender[facility] Male Resource Program Teacher: DAWN : 1990 Requested By: Gabo Ruff Order Number: [id number] Reading MD: Gabo Ruff Measurements Intervals [place] Rate: 79 P: 39 MN: 147 QRS: -9 QRSD: 120 T: 31 QT: 407 QTc: 467 Interpretive Statements SINUS RHYTHM MODERATE INTRAVENTRICULAR CONDUCTION DELAY MINIMAL VOLTAGE CRITERIA FOR LVH, CONSIDER NORMAL VARIANT NONSPECIFIC ST & T-WAVE ABNORMALITY Compared to ECG 07/26/2025 07:46:53 No significant changes /store/S0/[id number]
[2025-07-27 12:00] VITALS: BP 104/60; PULSE 76; PULSE 87; RESP 18; TEMP 36.4; O2SAT 97
--- NOTE | 2025-07-27 15:30 | PD.RESPRO ---
Documentation for date of: 07/27/25 Subjective Subjective Interval history: Patient seen and assessed in hospital bed oriented x 2 (person and place but not to time). Answers questions appropriately and states an understanding of his left foot fracture which does not need surgery per orthopedic surgery. Exam Vital Signs Temp Pulse Resp BP Pulse Ox O2 Del Method 97.6 F 76 18 104/60 97 Room Air 07/27/25 12:00 07/27/25 12:00 07/27/25 12:00 07/27/25 12:00 07/27/25 12:00 07/27/25 12:00 Narrative Exam Physical Exam: GENERAL: Awake, answering questions appropriately but mumbles answers, appears stated age HEENT: NC/AT. Moist mucosa. PERRLA/EOMI. CARDIO: Heart RRR, no obvious murmurs, no JVD. PULM: No coughing or visible SOB. Lungs CTA B/L. GI: Abdomen soft, NT/ND, +BS. SKIN/MSK/EXT: Left foot mildly swollen with mild ecchymosis on the lateral aspect. No wounds/discoloration/rashes/edema/amputations noted. +Pedal pulses present B/L. NEURO: Oriented x2 (person and time but not to place close), cranial nerves II to XII grossly intact, muscle strength 4 out of 4 on bilateral upper and lower extremities, unable to assess sensation as patient is not willing to comply, pronator drift negative, [id number] testing negative Objective Labs 07/27/25 04:48 07/27/25 04:48 Labs: Laboratory Results - last 24 hr 07/27/25 04:48 WBC 6.4 RBC 4.04 L Hgb 12.2 L Hct 38.2 L MCV 95 MCH 30.2 MCHC 31.9 RDW Std Deviation 43.8 Plt Count 171 Neut % (Auto) 47 Lymph % (Auto) 30 [place] % (Auto) 12 Eos % (Auto) 10 Baso % (Auto) 2 Neut # (Auto) 3.0 Lymph # (Auto) 1.9 [place] # (Auto) 0.8 Eos # (Auto) 0.6 H Baso # (Auto) 0.1 Immature Gran # (Auto) 0.02 H Absolute Nucleated RBC 0.00 Immature Gran % 0 Nucleated RBC % 0 Sodium 142 Potassium 3.8 Chloride 111 H Carbon Dioxide 21.0 Anion Gap 10 BUN 6 L Creatinine 0.8 Estim Creat Clear Calc 162.6 eGFR > 60 BUN/Creatinine Ratio 8 L Glucose 103 Calculated Osmolality 280 Calcium 9.2 Ammonia 65 H Procalcitonin 0.07 Quality Measures Quality Measures stroke Suspected type of Stroke: Non Acute Last known well (date): 07/25/25 Last known well (time): 08:30 Tenecteplase given: Reason(s) Tenecteplase not given: Outside the time window not given Rehab services: PT evaluation ordered VTE Prophylaxis: pharmaceutical Antithrombotic by day 2:: ordered Statin ordered: <75 y/o high intensity dose Anticoagulation ordered for A-fib or flutter (current or hx): not indicated Assessment & Plan Assessment Current Active Medications: Generic Name Dose Route Start Last Admin Trade Name Freq PRN Reason Stop Dose Admin Acetaminophen 650 mg 07/25/25 15:04 07/25/25 21:01 Acetaminophen 325 Mg Tablet PO 08/24/25 15:03 650 mg Q6H PRN Administration PAIN SCALE 1-3 (mild Aspirin 81 mg 07/26/25 09:00 07/27/25 08:17 Aspirin Ec 81 Mg Tabec PO 08/25/25 08:59 81 mg QDAY KRISTEN Administration Atorvastatin Calcium 40 mg 07/25/25 21:00 07/26/25 20:32 Atorvastatin Calcium 20 Mg Tablet PO 08/24/25 20:59 40 mg HS KRISTEN Administration Benztropine Mesylate 1 mg 07/25/25 21:00 07/27/25 08:17 Benztropine 0.5 Mg Tablet PO 08/24/25 20:59 1 mg BID KRISTEN Administration Citalopram Hydrobromide 20 mg 07/26/25 09:00 07/27/25 08:17 Citalopram 20 Mg Tablet PO 08/25/25 08:59 20 mg QDAY KRISTEN Administration Clozapine 50 mg 07/26/25 09:00 07/27/25 08:16 Clozapine 50 Mg Tablet PO 08/25/25 08:59 50 mg QAM KRISTEN Administration Clozapine 200 mg 07/25/25 21:00 07/27/25 08:16 Clozapine 50 Mg Tablet PO 08/24/25 20:59 200 mg BID KRISTEN Administration Divalproex Sodium 250 mg 07/27/25 21:[address] 500 Mg Tablet.Dr PO 08/26/25 20:59 BID KRISTEN Heparin Sodium (Porcine) 5,000 unit 07/25/25 21:00 07/27/25 08:17 Heparin Sod Inj 5000 Unit/Ml Vial SC 08/08/25 20:59 5,000 unit Q12HR KRISTEN Administration Sodium Chloride 1,000 mls @ 50 mls/hr 07/25/25 13:00 07/26/25 17:33 Ns IV 08/24/25 12:59 50 mls/hr Q10H KRISTEN Administration Labetalol HCl 10 mg 07/25/25 16:00 Labetalol Inj 5 Mg/Ml Vial 20 Ml IVP 08/24/25 15:59 Q2HR PRN SBP>220 Protocol Levocarnitine 1,500 mg 07/27/25 15:30 Levocarnitine Sf Liqd 100 Mg/Ml PO 08/26/25 15:29 QDAY KRISTEN Protocol Levothyroxine Sodium 75 mcg 07/26/25 06:00 07/27/25 06:01 Levothyroxine Sodium 25 Mcg Tablet PO 08/25/25 05:59 75 mcg ACBR KRISTEN Administration [place] Carbonate 900 mg 07/26/25 09:00 07/27/25 08:17 [place] Carb 150 Mg Capsule PO 08/25/25 08:59 900 mg QDAY KRISTEN Administration Olanzapine 10 mg 07/26/25 09:00 07/27/25 08:22 Olanzapine 5 Mg Tablet PO 08/25/25 08:59 10 mg QDAY KRISTEN Administration Sennosides 1 tab 07/25/25 15:04 Senna Tablet PO 08/24/25 15:03 QDAY PRN constipation Protocol Plan 35-year-old male with past medical history of schizoaffective disorder, psychiatric issues unspecified at this time, hypothyroidism, hyperlipidemia presenting to the ED on 07/25 from [facility] for an episode of dizziness and off balance will be admitted for acute encephalopathy likely secondary to drug interaction versus possible ischemic stroke in the posterior area, will obtain MRI brain and follow-up with neurology recommendations. #Acute encephalopathy #Concern for polypharmacy #Stroke rule out #Sinus tachycardia As stated above, patient presented with episode of fall and dizziness [facility] physician concerned about possible anticholinergic syndrome/toxicity as the patient is on clozapine and benztropine On examination, patient does not have symptoms or signs of anticholinergic syndrome Teleneurology consulted, at bedtime score of 3 CT head and CTA of the head and neck negative for any acute findings Salicylate and acetaminophen levels within normal limits Poison control made aware, low suspicion for anticholinergic syndrome as the patient does not have clinical signs additionally if there were signs it would be GI symptoms which the patient does not have EKG shows sinus rhythm with QTc of 460 MRI brain negative for any acute infarct, demyelinating pattern noted Plan: Neurology consulted, appreciate recommendations As needed antihypertensives blood pressure greater than 220/105 Aspirin and statin initiated Physical therapy and speech eval Head of bed greater than 30, euglycemic and euthermic parameters #Schizoaffective disorder #Psychiatric history As noted above, patient has a court ordered to be placed at [facility], unsure exactly why at this time Patient on several medications including benztropine 1 mg p.o. at bedtime, citalopram 20 mg p.o. daily Clozapine 250 mg p.o. daily Divalproex 500 mg p.o. twice daily [place] 900 mg p.o. daily and olanzapine 10 mg p.o. daily [place] levels low at 0.88 Abnormal EEG per neurology Ammonia elevated at 67 likely secondary to Depakote Plan: Change Depakote to 250 mg p.o. twice daily Follow-up on morning ammonia Continue all other home medications Follow-up on ammonia, valproate level #Acute fracture of left fifth metatarsal Patient had a fall as described in HPI X-ray confirms fracture of the left fifth metatarsal Orthopedic surgery recommended against surgery and that it could be managed outpatient with podiatry and boot placement Plan: Placed walking boot on patient and follow-up outpatient with podiatry Pain management with Tylenol #Hypothyroidism Chronic medical condition Patient on home 75 mcg of levothyroxine TSH of 3.48 and free T4 of 1.31 Plan: Continue home medication #Hypercalcemia, improving Differentials include: PTH dependent (parathyroid adenoma, HCC) versus PTH independent (vitamin D toxicity, lymphoma/sarcoma), possible drug interaction/adverse event Electrolyte abnormality noted on CMP Corrected calcium of 10.4 PTH of 36 within normal limits Plan: Follow-up outpatient for parathyroid adenoma versus [facility] Health Maintenance: Lines: PIV Diet: Cardiac Bowel: Senna as needed GI prophylaxis: Not needed DVT prophylaxis: Heparin subcu Dispo: Pending echo, neurology recommendations regarding demyelinating pattern noted on MR Code: Full Patient seen and assessed with attending Dr. Jose Luis Ruff, PGY-2 Internal Medicine - GME Attending Provider Attestation/Addendum I attest that I was physically present for the evaluation, physical examination, lab and imaging review of the patient with the residents. I discussed the case with the residents and agree with the findings and plans of care as documented above. At bedside today, patient appears more alert and awake compared to presentation. Oriented x 2 only, able to answer questions appropriately and follow commands. As per the insurance claims analyst at bedside, patient's mentation is still not back at his baseline. Noted to have elevated ammonia level at 67, discussed with neurology, decreased Depakote dose to 250 mg twice daily, also started on levocarnitine 1500 mg daily. Continues to be on aspirin and statin. Continues to be on home medication for seizure affective disorder and his psychiatric history. We will continue with pain control for acute fracture of left fifth metatarsal. EEG came back positive for multifocal spike and wave discharges suggestive of seizure disorder, we will discuss with neurology regarding starting antiepileptics. William Amaya MD
[2025-07-27 16:00] VITALS: BP 118/82; PULSE 70; PULSE 90; RESP 18; TEMP 36.3; O2SAT 95
[2025-07-27] MEDS: LEVOCARNITINE 1500 MG PO (16:17)
[2025-07-27] MEDS: SODIUM CHLORIDE 0.9% 1000 ML 1,000 ML 50 ML IV (16:18)
--- NOTE | 2025-07-27 16:29 | PC.NURSE ---
Order for walking boot faxed to [employer] [facility] by employment clerk.
[2025-07-27 20:00] VITALS: PULSE 91
[2025-07-27] MEDS: ATORVASTATIN CALCIUM 20 MG TABLET 40 MG PO (20:01)
--- NOTE | 2025-07-27 20:55 | PC.NURSE ---
Pt refused to answer some of the questions to complete the [place] suicide scale, pt answered questions 1-4 with a yes and for question #5, pt stated I do not know. charge loader was made aware.
[2025-07-27] MEDS: ACETAMINOPHEN 325 MG TABLET 650 MG PO (22:40)
--- NOTE | 2025-07-27 23:15 | VVPN_ITS ---
Telemedicine visit statement This visit was conducted with the use of phone was obtained on 07/27/25 at 2315. Documentation for date of: 07/27/25 Subjective Subjective Interval history: Patient is in medsurg, no new symptoms reported. Virtual exam Vital Signs Temp Pulse Resp BP Pulse Ox O2 Del Method 97.3 F 91 18 118/82 95 Room Air 07/27/25 16:00 07/27/25 20:00 07/27/25 16:00 07/27/25 16:00 07/27/25 16:00 07/27/25 16:00 Objective Labs 07/27/25 04:48 07/27/25 04:48 Labs: Laboratory Results - last 24 hr 07/27/25 04:48 WBC 6.4 RBC 4.04 L Hgb 12.2 L Hct 38.2 L MCV 95 MCH 30.2 MCHC 31.9 RDW Std Deviation 43.8 Plt Count 171 Neut % (Auto) 47 Lymph % (Auto) 30 [place] % (Auto) 12 Eos % (Auto) 10 Baso % (Auto) 2 Neut # (Auto) 3.0 Lymph # (Auto) 1.9 [place] # (Auto) 0.8 Eos # (Auto) 0.6 H Baso # (Auto) 0.1 Immature Gran # (Auto) 0.02 H Absolute Nucleated RBC 0.00 Immature Gran % 0 Nucleated RBC % 0 Sodium 142 Potassium 3.8 Chloride 111 H Carbon Dioxide 21.0 Anion Gap 10 BUN 6 L Creatinine 0.8 Estim Creat Clear Calc 162.6 eGFR > 60 BUN/Creatinine Ratio 8 L Glucose 103 Calculated Osmolality 280 Calcium 9.2 Ammonia 65 H Procalcitonin 0.07 Assessment & Plan Problem List (1) Abnormal involuntary movement: Status: Acute Assessment and plan: resolved. MRI brain: showed findings consistent chronic small vessel disease, not MS. As the EEG showed abnormal epileptifom dischargs, we will keep him on VPA 250 mg bid Close monitoring of VPA level and Ammonia level periodically.
[2025-07-28] VITALS (7 sets, daily range): BP systolic 90–121; BP diastolic 57–79; PULSE 72–98; RESP 16–18; TEMP 36.1–36.7; O2SAT 95–98
[2025-07-28 05:12] LABS: Basophils # (Auto) 0.1 Thou/mm3 (0.0-0.2); Basophils % (Auto) 1 % (0-2.5); Eosinophils # (Auto) 0.6 Thou/mm3 (0.0-0.5); Eosinophils % (Auto) 9 % (0-10); Hematocrit 37.1 % (41.0-53.0); Hemoglobin 11.8 g/dL (13.5-16.0); Immature Granulocytes Auto 0.02 Thou/mm3 (0.00-0.00); Lymphocytes # (Auto) 2.0 Thou/mm3 (1.0-4.8); Lymphocytes % (Auto) 31 % (10-50); Mean Corpuscular HGB Conc 31.8 g/dl (31.0-37.0); Mean Corpuscular Hemoglobin 30.9 pg (25.0-35.0); Mean Corpuscular Volume 97 fL (80-100); Monocytes # (Auto) 0.7 Thou/mm3 (0.0-0.8); Monocytes % (Auto) 11 % (0-12); Neutrophils # (Auto) 2.9 Thou/mm3 (1.8-7.7); Neutrophils % (Auto) 47 % (37-80); Nucleated Red Blood Cell # 0.00 Thou/mm3 (0.00-0.00); Nucleated Red Blood Cell % 0 /100 WBC (0); Platelet Count 191 Thou/mm3 (140-440); RDW Standard Deviation 45.2 fL (35.1-43.9); Red Blood Count 3.82 Miln/mm3 (4.50-5.90); White Blood Count 6.3 Thou/mm3 (3.8-10.6)
[2025-07-28 05:38] LABS: Ammonia 39 uMol/L (11-32)
[2025-07-28 05:39] LABS: Anion Gap 10 (7-16); BUN/Creatinine Ratio 6 Ratio (12-20); Blood Urea Nitrogen < 5 mg/dL (9-23); Calcium 9.1 mg/dL (8.3-10.6); Carbon Dioxide 22.4 mMol/L (20.0-31.0); Chloride 110 mMol/L (98-107); Creatinine (Component) 0.9 mg/dL (0.6-1.3); Estimated Creatinine Clearance 144.5 mL/min (>60); Glucose 92 mg/dL (74-106); Osmolality,Calculated 280 (275-295); Potassium 4.0 mMol/L (3.4-5.1); Sodium 142 mMol/L (136-145); eGFR > 60 See Note
[2025-07-28] MEDS: LEVOCARNITINE 1500 MG PO (08:38)
[2025-07-28] MEDS: HEPARIN SOD INJ 5000 UNIT/ML VIAL SC ×2 (08:39→20:53)
[2025-07-28] MEDS: BENZTROPINE 0.5 MG TABLET 1 MG PO ×2 (08:40→20:47)
[2025-07-28] MEDS: ASPIRIN EC 81 MG TABEC PO (08:40)
[2025-07-28] MEDS: LITHIUM CARB 150 MG CAPSULE 900 MG PO (08:40)
[2025-07-28] MEDS: CITALOPRAM 20 MG TABLET PO (08:40)
[2025-07-28 10:39] LABS: Ammonia 17 uMol/L (11-32)
--- NOTE | 2025-07-28 13:01 | PD.RESPRO ---
Documentation for date of: 07/28/25 Subjective Subjective Interval history: Overnight events: No acute events overnight. Patient was seen and examined at bedside. AM vitals and labs reviewed. Patient does not appear to be in any acute distress today. Patient's voice was very soft and constantly asked to go back to long-term. Health personnel from long-term noted that the patient does not appear back to his baseline. Patient's baseline is apparently more talkative. Patient did get up last night to use the bathroom on his own. Ammonia decreased to 39 Patient did answer yes to several questions on [place] suicide scale. EEG did show multifocal spike and wave pattern. Discussed case with neurology, who recommends changing Depakote dose to 250 mg in the morning and 500 mg in the evening. Also discussed subtherapeutic lithium levels with neurology, who recommended patient follow-up with outpatient psychiatry for management. Neurology recommends continuation of L-carnitine therapy for 3 months. Will recheck lithium levels tomorrow in the morning. Expected discharge within the next 24 hours, still pending mental health eval before discharge. Review of systems otherwise negative except for what is mentioned above. Exam Vital Signs Temp Pulse Resp BP Pulse Ox O2 Del Method 97.4 F 92 17 115/76 98 Room Air 07/28/25 08:00 07/28/25 12:00 07/28/25 08:00 07/28/25 08:00 07/28/25 08:00 07/28/25 08:00 Narrative Exam Physical Exam: General: Alert, no acute distress. Skin: Warm, dry, intact. Head: Normocephalic, atraumatic. Eye: Normal conjunctiva, PERRL. Cardiovascular: Regular rate and rhythm, no murmur, +S1/S2. Respiratory: Lungs are clear to auscultation, respirations unlabored, no crackles, no wheezing. Gastrointestinal: Soft, nontender, non-distended. No guarding or rebound tenderness. Extremities: No edema, no cyanosis, no clubbing. Left foot mildly swollen. Neuro: No focal deficits observed. Conversant, moving all extremities. No overt cerebellar signs/incoordination. Psychiatric: Cooperative, flat affect. Objective Labs 07/28/25 05:00 07/28/25 05:00 Labs: Laboratory Results - last 24 hr 07/28/25 07/28/25 05:00 09:55 WBC 6.3 RBC 3.82 L Hgb 11.8 L Hct 37.1 L MCV 97 MCH 30.9 MCHC 31.8 RDW Std Deviation 45.2 H Plt Count 191 Neut % (Auto) 47 Lymph % (Auto) 31 [place] % (Auto) 11 Eos % (Auto) 9 Baso % (Auto) 1 Neut # (Auto) 2.9 Lymph # (Auto) 2.0 [place] # (Auto) 0.7 Eos # (Auto) 0.6 H Baso # (Auto) 0.1 Immature Gran # (Auto) 0.02 H Absolute Nucleated RBC 0.00 Immature Gran % 0 Nucleated RBC % 0 Sodium 142 Potassium 4.0 Chloride 110 H Carbon Dioxide 22.4 Anion Gap 10 BUN < 5 L Creatinine 0.9 Estim Creat Clear Calc 144.5 eGFR > 60 BUN/Creatinine Ratio 6 L Glucose 92 Calculated Osmolality 280 Calcium 9.1 Ammonia 39 H 17 Quality Measures Quality Measures stroke Suspected type of Stroke: Non Acute Last known well (date): 07/25/25 Last known well (time): 08:30 Tenecteplase given: Reason(s) Tenecteplase not given: Outside the time window not given Rehab services: PT evaluation ordered VTE Prophylaxis: pharmaceutical Antithrombotic by day 2:: ordered Statin ordered: <75 y/o high intensity dose Anticoagulation ordered for A-fib or flutter (current or hx): not indicated Assessment & Plan Assessment Current Active Medications: Generic Name Dose Route Start Last Admin Trade Name Freq PRN Reason Stop Dose Admin Acetaminophen 650 mg 07/25/25 15:04 07/27/25 22:40 Acetaminophen 325 Mg Tablet PO 08/24/25 15:03 650 mg Q6H PRN Administration PAIN SCALE 1-3 (mild Aspirin 81 mg 07/26/25 09:00 07/28/25 08:40 Aspirin Ec 81 Mg Tabec PO 08/25/25 08:59 81 mg QDAY KRISTEN Administration Atorvastatin Calcium 40 mg 07/25/25 21:00 07/27/25 20:01 Atorvastatin Calcium 20 Mg Tablet PO 08/24/25 20:59 40 mg HS KRISTEN Administration Benztropine Mesylate 1 mg 07/25/25 21:00 07/28/25 08:40 Benztropine 0.5 Mg Tablet PO 08/24/25 20:59 1 mg BID KRISTEN Administration Citalopram Hydrobromide 20 mg 07/26/25 09:00 07/28/25 08:40 Citalopram 20 Mg Tablet PO 08/25/25 08:59 20 mg QDAY KRISTEN Administration Clozapine 50 mg 07/26/25 09:00 07/28/25 08:39 Clozapine 50 Mg Tablet PO 08/25/25 08:59 50 mg QAM KRISTEN Administration Clozapine 200 mg 07/25/25 21:00 07/28/25 08:39 Clozapine 50 Mg Tablet PO 08/24/25 20:59 200 mg BID KRISTEN Administration Divalproex Sodium 250 mg 07/27/25 21:[address] 500 Mg Tablet.Dr PO 08/26/25 20:59 On Hold: 07/27/25 21:00 BID KRISTEN Heparin Sodium (Porcine) 5,000 unit 07/25/25 21:00 07/28/25 08:39 Heparin Sod Inj 5000 Unit/Ml Vial SC 08/08/25 20:59 5,000 unit Q12HR KRISTEN Administration Sodium Chloride 1,000 mls @ 50 mls/hr 07/25/25 13:00 07/27/25 16:18 Ns IV 08/24/25 12:59 50 mls/hr Q10H KRISTEN Administration Labetalol HCl 10 mg 07/25/25 16:00 Labetalol Inj 5 Mg/Ml Vial 20 Ml IVP 08/24/25 15:59 Q2HR PRN SBP>220 Protocol Levocarnitine 1,500 mg 07/27/25 15:30 07/28/25 08:38 Levocarnitine Sf Liqd 100 Mg/Ml PO 08/26/25 15:29 1,500 mg QDAY KRISTEN Administration Protocol Levothyroxine Sodium 75 mcg 07/26/25 06:00 07/28/25 05:32 Levothyroxine Sodium 25 Mcg Tablet PO 08/25/25 05:59 Not Given ACBR KRISTEN [place] Carbonate 900 mg 07/26/25 09:00 07/28/25 08:40 [place] Carb 150 Mg Capsule PO 08/25/25 08:59 900 mg QDAY KRISTEN Administration Olanzapine 10 mg 07/26/25 09:00 07/28/25 08:40 Olanzapine 5 Mg Tablet PO 08/25/25 08:59 10 mg QDAY KRISTEN Administration Sennosides 1 tab 07/28/25 10:30 07/28/25 11:12 Senna Tablet PO 08/27/25 10:29 1 tab QDAY KRISTEN Administration Protocol Plan 35-year-old male with past medical history of schizoaffective disorder, psychiatric issues unspecified at this time, hypothyroidism, hyperlipidemia presenting to the ED on 07/25 from [facility] for an episode of dizziness and off balance will be admitted for acute encephalopathy likely secondary to drug interaction versus possible ischemic stroke in the posterior area, will obtain MRI brain and follow-up with neurology recommendations. #Acute encephalopathy #Concern for polypharmacy #Stroke rule out #Seizures #Sinus tachycardia As stated above, patient presented with episode of fall and dizziness [facility] physician concerned about possible anticholinergic syndrome/toxicity as the patient is on clozapine and benztropine On examination, patient does not have symptoms or signs of anticholinergic syndrome Teleneurology consulted, at bedtime score of 3 CT head and CTA of the head and neck negative for any acute findings Salicylate and acetaminophen levels within normal limits Poison control made aware, low suspicion for anticholinergic syndrome as the patient does not have clinical signs additionally if there were signs it would be GI symptoms which the patient does not have EKG shows sinus rhythm with QTc of 460 MRI brain negative for any acute infarct, demyelinating pattern noted EEG shows multifocal spike and wave pattern Plan: Neurology consulted, appreciate recommendations As needed antihypertensives blood pressure greater than 220/105 Aspirin and statin initiated Physical therapy and speech eval Head of bed greater than 30, euglycemic and euthermic parameters Depakote 250 mg in the morning and 500 mg in the evening #Schizoaffective disorder #Psychiatric history As noted above, patient has a court ordered to be placed at [facility], unsure exactly why at this time Patient on several medications including benztropine 1 mg p.o. at bedtime, citalopram 20 mg p.o. daily Clozapine 250 mg p.o. daily Divalproex 500 mg p.o. twice daily [place] 900 mg p.o. daily and olanzapine 10 mg p.o. daily [place] levels low at 0.88 Abnormal EEG per neurology Ammonia elevated at 67 likely secondary to Depakote, decreased to 17 Plan: Depakote 250 mg in the morning and 500 mg in the evening Continue all other home medications Follow-up on valproate level Patient to follow-up with outpatient psychiatry regarding subtherapeutic lithium Patient to continue L-carnitine for total 3 months (end date 10/26) #Acute fracture of left fifth metatarsal Patient had a fall as described in HPI X-ray confirms fracture of the left fifth metatarsal Orthopedic surgery recommended against surgery and that it could be managed outpatient with podiatry and boot placement Plan: Placed walking boot on patient and follow-up outpatient with podiatry Pain management with Tylenol #Hypothyroidism Chronic medical condition Patient on home 75 mcg of levothyroxine TSH of 3.48 and free T4 of 1.31 Plan: Continue home medication #Hypercalcemia, improving Differentials include: PTH dependent (parathyroid adenoma, HCC) versus PTH independent (vitamin D toxicity, lymphoma/sarcoma), possible drug interaction/adverse event Electrolyte abnormality noted on CMP Corrected calcium of 10.4 PTH of 36 within normal limits Plan: Follow-up outpatient for parathyroid adenoma versus [facility] Health Maintenance: Lines: PIV Diet: Cardiac Bowel: Senna as needed GI prophylaxis: Not needed DVT prophylaxis: Heparin subcu Dispo: Pending echo, neurology recommendations regarding demyelinating pattern noted on MR Code: Full Patient seen and assessed with attending Dr. Jose Luis Ruelas, PGY1 Attending Provider Attestation/Addendum I attest that I was physically present for the evaluation, physical examination, lab and imaging review of the patient with the residents. I discussed the case with the residents and agree with the findings and plans of care as documented above. At bedside today, patient more alert and awake compared to yesterday. Was oriented x 3 and able to answer questions appropriately. Patient still speaks in low volumes and does not respond to all questions. Stated that he wants to go back to custodial and continues to express suicidal ideation. EEG was completed, shows spike-wave and well-formed discharges suggestive of seizures. Discussed with neurology, we will continue with valproic acid 250 mg twice daily as recommended. Ammonia level has improved and come back down to normal levels. Caregiver at bedside stated that patient is still not back at his baseline and appears less active compared to the facility. We will continue to monitor his mentation closely. William Amaya MD
--- NOTE | 2025-07-28 15:03 | PC.SS ---
Rounding note: Not at baseline. Mental Health eval. needed when medically clear. Expressed SI to bedside RN.
[2025-07-28] MEDS: ATORVASTATIN CALCIUM 20 MG TABLET 40 MG PO (20:48)
[2025-07-28] MEDS: ACETAMINOPHEN 325 MG TABLET 650 MG PO (20:50)
--- NOTE | 2025-07-28 22:43 | PD.EVENT ---
Documentation for date of: 07/28 He is stiil In medurg, no complaints reported. Event Note Event Note: Patient is in medsu, had not gotten had any new symptoms.
[2025-07-29] VITALS (7 sets, daily range): BP systolic 98–147; BP diastolic 59–90; PULSE 73–112; RESP 18; TEMP 36.2–36.8; O2SAT 94–97; BMI 31.4
[2025-07-29 05:20] LABS: Basophils # (Auto) 0.1 Thou/mm3 (0.0-0.2); Basophils % (Auto) 1 % (0-2.5); Eosinophils # (Auto) 0.6 Thou/mm3 (0.0-0.5); Eosinophils % (Auto) 10 % (0-10); Hematocrit 37.4 % (41.0-53.0); Hemoglobin 11.7 g/dL (13.5-16.0); Immature Granulocytes Auto 0.03 Thou/mm3 (0.00-0.00); Lymphocytes # (Auto) 2.0 Thou/mm3 (1.0-4.8); Lymphocytes % (Auto) 34 % (10-50); Mean Corpuscular HGB Conc 31.3 g/dl (31.0-37.0); Mean Corpuscular Hemoglobin 30.1 pg (25.0-35.0); Mean Corpuscular Volume 96 fL (80-100); Monocytes # (Auto) 0.6 Thou/mm3 (0.0-0.8); Monocytes % (Auto) 11 % (0-12); Neutrophils # (Auto) 2.5 Thou/mm3 (1.8-7.7); Neutrophils % (Auto) 43 % (37-80); Nucleated Red Blood Cell # 0.00 Thou/mm3 (0.00-0.00); Nucleated Red Blood Cell % 0 /100 WBC (0); Platelet Count 185 Thou/mm3 (140-440); RDW Standard Deviation 45.6 fL (35.1-43.9); Red Blood Count 3.89 Miln/mm3 (4.50-5.90); White Blood Count 5.7 Thou/mm3 (3.8-10.6)
[2025-07-29] MEDS: LEVOTHYROXINE SODIUM 25 MCG TABLET 75 MCG PO (05:25)
[2025-07-29 05:39] LABS: Anion Gap 11 (7-16); BUN/Creatinine Ratio 8 Ratio (12-20); Blood Urea Nitrogen 7 mg/dL (9-23); Calcium 9.2 mg/dL (8.3-10.6); Carbon Dioxide 22.2 mMol/L (20.0-31.0); Chloride 110 mMol/L (98-107); Creatinine (Component) 0.9 mg/dL (0.6-1.3); Estimated Creatinine Clearance 143.7 mL/min (>60); Glucose 91 mg/dL (74-106); Osmolality,Calculated 282 (275-295); Potassium 3.9 mMol/L (3.4-5.1); Sodium 143 mMol/L (136-145); eGFR > 60 See Note
[2025-07-29 05:41] LABS: Lithium 0.49 mEq/L (1.00-1.20)
[2025-07-29] MEDS: DIVALPROEX SOD EC 125 MG TABEC 250 MG PO (08:19)
[2025-07-29] MEDS: ASPIRIN EC 81 MG TABEC PO (08:20)
[2025-07-29] MEDS: BENZTROPINE 0.5 MG TABLET 1 MG PO ×2 (08:20→20:38)
[2025-07-29] MEDS: CITALOPRAM 20 MG TABLET PO (08:20)
[2025-07-29] MEDS: LITHIUM CARB 150 MG CAPSULE 900 MG PO (08:20)
[2025-07-29] MEDS: HEPARIN SOD INJ 5000 UNIT/ML VIAL SC ×2 (08:22→20:40)
[2025-07-29] MEDS: LEVOCARNITINE 1500 MG PO (09:47)
--- NOTE | 2025-07-29 12:03 | ESPR_ITS ---
<Statement entered by Srinath Salas MD - 07/30/25 14:57> I have personally seen and examined the patient, agree with residents assessment and plan Patient plan of care was discussed with the attending physician, Dr. Jose Luis Salas, PGY2 Documentation for date of: 07/29/25 Subjective Subjective Interval history: Overnight events: No acute events overnight. Patient was seen and examined at bedside. AM vitals and labs reviewed. Patient continues to mumble words. However, per [facility] staff member, the patient is back to baseline. Nursing staff notes that patient appears very happy in the hospital and possibly request ice cream, juices, and additional food and will throw temper tantrums if he does not get it. Asked patient why he feels suicidal, patient stated that he does not know. Attempted to give patient an enema to encourage bowel movement as the patient has not pooped since 07/25, but patient refused. Staff members from [facility] seem to encourage patient's behavior. Repeat lithium 0.49. Discussed case with neurology, who has cleared the patient to be discharged from their service. Will obtain crisis evaluation after patient has a bowel movement. Expected discharge after crisis evaluation. Patient to follow-up with psychiatry in [facility] regarding subtherapeutic lithium. Review of systems otherwise negative except for what is mentioned above. Exam Vital Signs Temp Pulse Resp BP Pulse Ox O2 Del Method 97.4 F 87 18 121/76 97 Room Air 07/29/25 08:00 07/29/25 08:00 07/29/25 08:00 07/29/25 08:00 07/29/25 08:00 07/29/25 08:00 Narrative Exam Physical Exam: General: Alert, no acute distress. Skin: Warm, dry, intact. Head: Normocephalic, atraumatic. Eye: Normal conjunctiva, PERRL. Cardiovascular: Regular rate and rhythm, no murmur, +S1/S2. Respiratory: Lungs are clear to auscultation, respirations unlabored, no crackles, no wheezing. Gastrointestinal: Soft, nontender, non-distended. No guarding or rebound tenderness. Extremities: No edema, no cyanosis, no clubbing. Left foot mildly swollen. Neuro: No focal deficits observed. Conversant, moving all extremities. No overt cerebellar signs/incoordination. Psychiatric: Cooperative, flat affect. Objective Labs 07/29/25 04:50 07/29/25 04:50 Labs: Laboratory Results - last 24 hr 07/29/25 04:50 WBC 5.7 RBC 3.89 L Hgb 11.7 L Hct 37.4 L MCV 96 MCH 30.1 MCHC 31.3 RDW Std Deviation 45.6 H Plt Count 185 Neut % (Auto) 43 Lymph % (Auto) 34 [place] % (Auto) 11 Eos % (Auto) 10 Baso % (Auto) 1 Neut # (Auto) 2.5 Lymph # (Auto) 2.0 [place] # (Auto) 0.6 Eos # (Auto) 0.6 H Baso # (Auto) 0.1 Immature Gran # (Auto) 0.03 H Absolute Nucleated RBC 0.00 Immature Gran % 1 H Nucleated RBC % 0 Sodium 143 Potassium 3.9 Chloride 110 H Carbon Dioxide 22.2 Anion Gap 11 BUN 7 L Creatinine 0.9 Estim Creat Clear Calc 143.7 eGFR > 60 BUN/Creatinine Ratio 8 L Glucose 91 Calculated Osmolality 282 Calcium 9.2 [place] 0.49 L Quality Measures Quality Measures stroke Suspected type of Stroke: Non Acute Last known well (date): 07/25/25 Last known well (time): 08:30 Tenecteplase given: Reason(s) Tenecteplase not given: Outside the time window not given Rehab services: PT evaluation ordered and Speech Language Pathology eval ordered VTE Prophylaxis: pharmaceutical Antithrombotic by day 2:: ordered Statin ordered: <75 y/o high intensity dose Anticoagulation ordered for A-fib or flutter (current or hx): not indicated Assessment & Plan Assessment Current Active Medications: Generic Name Dose Route Start Last Admin Trade Name Freq PRN Reason Stop Dose Admin Acetaminophen 650 mg 07/25/25 15:04 07/28/25 20:50 Acetaminophen 325 Mg Tablet PO 08/24/25 15:03 650 mg Q6H PRN Administration PAIN SCALE 1-3 (mild Aspirin 81 mg 07/26/25 09:00 07/29/25 08:20 Aspirin Ec 81 Mg Tabec PO 08/25/25 08:59 81 mg QDAY KRISTEN Administration Atorvastatin Calcium 40 mg 07/25/25 21:00 07/28/25 20:48 Atorvastatin Calcium 20 Mg Tablet PO 08/24/25 20:59 40 mg HS KRISTEN Administration Benztropine Mesylate 1 mg 07/25/25 21:00 07/29/25 08:20 Benztropine 0.5 Mg Tablet PO 08/24/25 20:59 1 mg BID KRISTEN Administration Citalopram Hydrobromide 20 mg 07/26/25 09:00 07/29/25 08:20 Citalopram 20 Mg Tablet PO 08/25/25 08:59 20 mg QDAY KRISTEN Administration Clozapine 50 mg 07/26/25 09:00 07/29/25 08:21 Clozapine 50 Mg Tablet PO 08/25/25 08:59 50 mg QAM KRISTEN Administration Clozapine 200 mg 07/25/25 21:00 07/29/25 08:21 Clozapine 50 Mg Tablet PO 08/24/25 20:59 200 mg BID KRISTEN Administration Divalproex Sodium 500 mg 07/29/25 21:[address] 500 Mg Tablet.Dr PO 08/28/25 20:59 HS KRISTEN Divalproex Sodium 250 mg 07/29/25 09:00 07/29/25 08:19 Divalproex Sod Ec 125 Mg Tabec PO 08/28/25 08:59 250 mg QAM KRISTEN Administration Heparin Sodium (Porcine) 5,000 unit 07/25/25 21:00 07/29/25 08:22 Heparin Sod Inj 5000 Unit/Ml Vial SC 08/08/25 20:59 5,000 unit Q12HR KRISTEN Administration Labetalol HCl 10 mg 07/25/25 16:00 Labetalol Inj 5 Mg/Ml Vial 20 Ml IVP 08/24/25 15:59 Q2HR PRN SBP>220 Protocol Levocarnitine 1,500 mg 07/27/25 15:30 07/29/25 09:47 Levocarnitine Sf Liqd 100 Mg/Ml PO 08/26/25 15:29 1,500 mg QDAY KRISTEN Administration Protocol Levothyroxine Sodium 75 mcg 07/26/25 06:00 07/29/25 05:25 Levothyroxine Sodium 25 Mcg Tablet PO 08/25/25 05:59 75 mcg ACBR KRISTEN Administration [place] Carbonate 900 mg 07/26/25 09:00 07/29/25 08:20 [place] Carb 150 Mg Capsule PO 08/25/25 08:59 900 mg QDAY KRISTEN Administration Olanzapine 10 mg 07/26/25 09:00 07/29/25 08:20 Olanzapine 5 Mg Tablet PO 08/25/25 08:59 10 mg QDAY KRISTEN Administration Sennosides 1 tab 07/28/25 10:30 07/29/25 08:21 Senna Tablet PO 08/27/25 10:29 1 tab QDAY KRISTEN Administration Protocol Plan 35-year-old male with past medical history of schizoaffective disorder, psychiatric issues unspecified at this time, hypothyroidism, hyperlipidemia presenting to the ED on 07/25 from [facility] for an episode of dizziness and off balance will be admitted for acute encephalopathy likely secondary to drug interaction versus possible ischemic stroke in the posterior area, will obtain MRI brain and follow-up with neurology recommendations. #Acute encephalopathy #Concern for polypharmacy #Stroke rule out #Seizures #Sinus tachycardia As stated above, patient presented with episode of fall and dizziness [facility] physician concerned about possible anticholinergic syndrome/toxicity as the patient is on clozapine and benztropine On examination, patient does not have symptoms or signs of anticholinergic syndrome Teleneurology consulted, at bedtime score of 3 CT head and CTA of the head and neck negative for any acute findings Salicylate and acetaminophen levels within normal limits Poison control made aware, low suspicion for anticholinergic syndrome as the patient does not have clinical signs additionally if there were signs it would be GI symptoms which the patient does not have EKG shows sinus rhythm with QTc of 460 MRI brain negative for any acute infarct, demyelinating pattern noted EEG shows multifocal spike and wave pattern Plan: Neurology consulted, appreciate recommendations As needed antihypertensives blood pressure greater than 220/105 Aspirin and statin initiated Physical therapy and speech eval Head of bed greater than 30, euglycemic and euthermic parameters Depakote 250 mg in the morning and 500 mg in the evening #Schizoaffective disorder #Psychiatric history As noted above, patient has a court ordered to be placed at [facility], unsure exactly why at this time Patient on several medications including benztropine 1 mg p.o. at bedtime, citalopram 20 mg p.o. daily Clozapine 250 mg p.o. daily [place] 900 mg p.o. daily and olanzapine 10 mg p.o. daily [place] levels low at 0.88 Abnormal EEG per neurology Ammonia elevated at 67 likely secondary to Depakote, decreased to 17 Plan: Depakote 250 mg in the morning and 500 mg in the evening Continue all other home medications Follow-up on valproate level Patient to follow-up with outpatient psychiatry regarding subtherapeutic lithium Patient to continue L-carnitine for total 3 months (end date 10/26) #Acute fracture of left fifth metatarsal Patient had a fall as described in HPI X-ray confirms fracture of the left fifth metatarsal Orthopedic surgery recommended against surgery and that it could be managed outpatient with podiatry and boot placement Plan: Placed walking boot on patient and follow-up outpatient with podiatry Pain management with Tylenol #Hypothyroidism Chronic medical condition Patient on home 75 mcg of levothyroxine TSH of 3.48 and free T4 of 1.31 Plan: Continue home medication #Hypercalcemia, improving Differentials include: PTH dependent (parathyroid adenoma, HCC) versus PTH independent (vitamin D toxicity, lymphoma/sarcoma), possible drug interaction/adverse event Electrolyte abnormality noted on CMP Corrected calcium of 10.4 PTH of 36 within normal limits Plan: Follow-up outpatient for par[facility]roid adenoma [facility] Health Maintenance: Lines: PIV Diet: Cardiac Bowel: Senna as needed GI prophylaxis: Not needed DVT prophylaxis: Heparin subcu Dispo: Pending echo, bowel movement, crisis evaluation Code: Full Patient seen and assessed with attending Dr. Amaya and senior resident Dr. Salas (PGY-2) Luisito Ruelas, PGY1 Attending Provider Attestation/Addendum I attest that I was physically present for the evaluation, physical examination, lab and imaging review of the patient with the residents. I discussed the case with the residents and agree with the findings and plans of care as documented above. Patient was seen and evaluated this morning at bedside. Patient continues to appear alert. Oriented x 3, able to answer question and follow commands appropriately. As per patient's cover maker from [facility], patient's mentation is back to his baseline. When asked about suicidal ideation, patient states he has suicidal ideation but was not able to explain further. We will continue with aspirin, statin, Depakote 250 in the morning and 500 in the evening. Continues to be on home clozapine, lithium. Continues to be on a walking boot for left fifth metatarsal fracture. Continues to be on home levothyroxine for hypothyroidism. Discussed with neurology, patient is stable for discharge from neurology standpoint. Started on bowel regimen as patient has not had bowel movement since admission. We will obtain crisis evaluation once patient is able to have a bowel movement. William Amaya MD
[2025-07-29] MEDS: POLYETHYLENE GLYCOL 17 GM PACKET PO (13:25)
[2025-07-29] MEDS: LACTULOSE SYRUP 20 GM/30 ML UDC 10 GM PO (13:25)
[2025-07-29] MEDS: SENNA/DOCUSATE SOD 1 TAB TABLET PO (13:26)
--- NOTE | 2025-07-29 14:00 | PC.SS ---
Rounding Note: Patient pending bowel movement. Pending medical clearance for mental health evaluation.
--- NOTE | 2025-07-29 16:04 | PD.RESPRO ---
Documentation for date of: 07/29/25 Subjective Subjective Interval history: Patient examined at bedside today. No acute overnight events. Patient reports that he wants to go home. He denies any pain at this time. No other complaints at this time. Exam Vital Signs Temp Pulse Resp BP Pulse Ox O2 Del Method 97.4 F 82 18 124/77 97 Room Air 07/29/25 12:00 07/29/25 12:00 07/29/25 12:00 07/29/25 12:00 07/29/25 12:07/29/25 12:00 Narrative Exam General: Alert, no acute distress. Skin: Warm, dry, intact. Head: Normocephalic, atraumatic. Eye: Normal conjunctiva, PERRL. Cardiovascular: Regular rate and rhythm, no murmur, +S1/S2. Respiratory: Lungs are clear to auscultation, respirations unlabored, no crackles, no wheezing. Gastrointestinal: Soft, nontender, non-distended. No guarding or rebound tenderness. Extremities: No edema, no cyanosis, no clubbing. Left foot mildly swollen. Neuro: No focal deficits observed. Conversant, moving all extremities. No overt cerebellar signs/incoordination. Psychiatric: Cooperative, flat affect. Objective Labs 07/29/25 04:50 07/29/25 04:50 Labs: Laboratory Results - last 24 hr 07/29/25 04:50 WBC 5.7 RBC 3.89 L Hgb 11.7 L Hct 37.4 L MCV 96 MCH 30.1 MCHC 31.3 RDW Std Deviation 45.6 H Plt Count 185 Neut % (Auto) 43 Lymph % (Auto) 34 [place] % (Auto) 11 Eos % (Auto) 10 Baso % (Auto) 1 Neut # (Auto) 2.5 Lymph # (Auto) 2.0 [place] # (Auto) 0.6 Eos # (Auto) 0.6 H Baso # (Auto) 0.1 Immature Gran # (Auto) 0.03 H Absolute Nucleated RBC 0.00 Immature Gran % 1 H Nucleated RBC % 0 Sodium 143 Potassium 3.9 Chloride 110 H Carbon Dioxide 22.2 Anion Gap 11 BUN 7 L Creatinine 0.9 Estim Creat Clear Calc 143.7 eGFR > 60 BUN/Creatinine Ratio 8 L Glucose 91 Calculated Osmolality 282 Calcium 9.2 [place] 0.49 L Quality Measures Quality Measures stroke Suspected type of Stroke: Non Acute Last known well (date): 07/25/25 Last known well (time): 08:30 Tenecteplase given: Reason(s) Tenecteplase not given: Outside the time window not given Rehab services: PT evaluation ordered and Speech Language Pathology eval ordered VTE Prophylaxis: pharmaceutical Antithrombotic by day 2:: not indicated (describe) Statin ordered: not ordered Anticoagulation ordered for A-fib or flutter (current or hx): not indicated Assessment & Plan Assessment Current Active Medications: Generic Name Dose Route Start Last Admin Trade Name Freq PRN Reason Stop Dose Admin Acetaminophen 650 mg 07/25/25 15:04 07/28/25 20:50 Acetaminophen 325 Mg Tablet PO 08/24/25 15:03 650 mg Q6H PRN Administration PAIN SCALE 1-3 (mild Aspirin 81 mg 07/26/25 09:00 07/29/25 08:20 Aspirin Ec 81 Mg Tabec PO 08/25/25 08:59 81 mg QDAY KRISTEN Administration Atorvastatin Calcium 40 mg 07/25/25 21:00 07/28/25 20:48 Atorvastatin Calcium 20 Mg Tablet PO 08/24/25 20:59 40 mg HS KRISTEN Administration Benztropine Mesylate 1 mg 07/25/25 21:00 07/29/25 08:20 Benztropine 0.5 Mg Tablet PO 08/24/25 20:59 1 mg BID KRISTEN Administration Citalopram Hydrobromide 20 mg 07/26/25 09:00 07/29/25 08:20 Citalopram 20 Mg Tablet PO 08/25/25 08:59 20 mg QDAY KRISTEN Administration Clozapine 50 mg 07/26/25 09:00 07/29/25 08:21 Clozapine 50 Mg Tablet PO 08/25/25 08:59 50 mg QAM KRISTEN Administration Clozapine 200 mg 07/25/25 21:00 07/29/25 08:21 Clozapine 50 Mg Tablet PO 08/24/25 20:59 200 mg BID KRISTEN Administration Divalproex Sodium 500 mg 07/29/25 21:[address] 500 Mg Tablet.Dr PO 08/28/25 20:59 HS KRISTEN Divalproex Sodium 250 mg 07/29/25 09:00 07/29/25 08:19 Divalproex Sod Ec 125 Mg Tabec PO 08/28/25 08:59 250 mg QAM KRISTEN Administration Heparin Sodium (Porcine) 5,000 unit 07/25/25 21:00 07/29/25 08:22 Heparin Sod Inj 5000 Unit/Ml Vial SC 08/08/25 20:59 5,000 unit Q12HR KRISTEN Administration Labetalol HCl 10 mg 07/25/25 16:00 Labetalol Inj 5 Mg/Ml Vial 20 Ml IVP 08/24/25 15:59 Q2HR PRN SBP>220 Protocol Levocarnitine 1,500 mg 07/27/25 15:30 07/29/25 09:47 Levocarnitine Sf Liqd 100 Mg/Ml PO 08/26/25 15:29 1,500 mg QDAY KRISTEN Administration Protocol Levothyroxine Sodium 75 mcg 07/26/25 06:00 07/29/25 05:25 Levothyroxine Sodium 25 Mcg Tablet PO 08/25/25 05:59 75 mcg ACBR KRISTEN Administration Crump Carbonate 900 mg 07/26/25 09:00 07/29/25 08:20 Crump Carb 150 Mg Capsule PO 08/25/25 08:59 900 mg QDAY KRISTEN Administration Olanzapine 10 mg 07/26/25 09:00 07/29/25 08:20 Olanzapine 5 Mg Tablet PO 08/25/25 08:59 10 mg QDAY KRISTEN Administration Sennosides 1 tab 07/28/25 10:30 07/29/25 08:21 Senna Tablet PO 08/27/25 10:29 1 tab QDAY KRISTEN Administration Protocol Plan Assessment: 35-year-old male with past medical history of schizoaffective disorder, psychiatric issues unspecified at this time, hypothyroidism, hyperlipidemia presenting to the ED on 07/25 from [facility] for an episode of dizziness and off balance will be admitted for acute encephalopathy likely secondary to drug interaction versus possible ischemic stroke in the posterior area, will obtain MRI brain and follow-up with neurology recommendations. #Acute encephalopathy #Concern for polypharmacy #Stroke ruled out #Seizures #Sinus tachycardia As stated above, patient presented with episode of fall and dizziness [facility] physician concerned about possible anticholinergic syndrome/toxicity as the patient is on clozapine and benztropine On examination, patient does not have symptoms or signs of anticholinergic syndrome Teleneurology consulted, at bedtime score of 3 CT head and CTA of the head and neck negative for any acute findings Salicylate and acetaminophen levels within normal limits Poison control made aware, low suspicion for anticholinergic syndrome as the patient does not have clinical signs additionally if there were signs it would be GI symptoms which the patient does not have EKG shows sinus rhythm with QTc of 460 MRI brain negative for any acute infarct, demyelinating pattern noted EEG shows multifocal spike and wave pattern Plan: Aspirin and statin initiated Physical therapy and speech eval Head of bed greater than 30, euglycemic and euthermic parameters Depakote 250 mg in the morning and 500 mg in the evening #Schizoaffective disorder #Psychiatric history As noted above, patient has a court ordered to be placed at [facility], unsure exactly why at this time Patient on several medications including benztropine 1 mg p.o. at bedtime, citalopram 20 mg p.o. daily Clozapine 250 mg p.o. daily [place] 900 mg p.o. daily and olanzapine 10 mg p.o. daily [place] levels low at 0.88 Abnormal EEG per neurology Ammonia elevated at 67 likely secondary to Depakote, decreased to 17 Plan: Depakote 250 mg in the morning and 500 mg in the evening Continue all other home medications Follow-up on valproate level Patient to follow-up with outpatient psychiatry regarding subtherapeutic lithium Patient to continue L-carnitine for total 3 months (end date 10/26) #Acute fracture of left fifth metatarsal #Hypothyroidism #Hypercalcemia Above handled by primary hospitalist team Patient seen and care discussed with my attending physician, Dr. Mary Grace Dubose, PGY-2 Attending Provider Attestation/Addendum I personally have seen and examined the patient at the bedside and I agreed with resident's findings, assessment and plan of care. Based on the workup, stroke has been ruled out. As the EEG showed abnormality consistent with seizures, we will keep him on Depakote 750 mg daily with close monitoring of his lithium and VPA and ammonia level. Stable for DC to [facility] and will see him over there.
--- NOTE | 2025-07-29 17:24 | PC.NURSE ---
Patient refusing removal of mendoza catheter. Would like to discharge with mendoza in place Dr. Hess made aware.
[2025-07-29] MEDS: ATORVASTATIN CALCIUM 20 MG TABLET 40 MG PO (20:38)
[2025-07-29] MEDS: DIVALPROEX SOD DR 500 MG TABLET.DR PO (20:39)
[2025-07-29] MEDS: ACETAMINOPHEN 325 MG TABLET 650 MG PO (20:55)
[2025-07-30] VITALS: BP 111/68; PULSE 80; PULSE 90; RESP 18; TEMP 36.6; O2SAT 94
[2025-07-30 04:00] VITALS: BP 97/63; PULSE 79; RESP 17; TEMP 36.1; O2SAT 95
[2025-07-30 06:00] VITALS: BMI 31.7
[2025-07-30] MEDS: LEVOTHYROXINE SODIUM 25 MCG TABLET 75 MCG PO (06:25)
[2025-07-30 08:00] VITALS: BP 115/76; PULSE 86; RESP 19; TEMP 36.7; O2SAT 95
[2025-07-30] MEDS: CITALOPRAM 20 MG TABLET PO (09:01)
[2025-07-30] MEDS: DIVALPROEX SOD EC 125 MG TABEC 250 MG PO (09:02)
[2025-07-30] MEDS: BENZTROPINE 0.5 MG TABLET 1 MG PO (09:02)
[2025-07-30] MEDS: ASPIRIN EC 81 MG TABEC PO (09:02)
[2025-07-30] MEDS: LITHIUM CARB 150 MG CAPSULE 900 MG PO (09:02)
[2025-07-30] MEDS: LEVOCARNITINE 1500 MG PO (09:02)
[2025-07-30] MEDS: HEPARIN SOD INJ 5000 UNIT/ML VIAL SC (09:06)
--- NOTE | 2025-07-30 09:26 | ESDS_ITS ---
Planned Discharge Date 07/30/25 DS: Providers Provider Date of admission: 07/25/25 15:03 Primary care physician: William Matson MD Admitting Provider: William Amaya MD Attending Provider on Admission: aDnish Oliva MD Consults: 07/25/25 12:58 Consult to Neurology / Tele-Neurology Routine Comment: Consulting Provider: [facility] 07/25/25 15:08 Referral Physical Therapy Routine Comment: Physician Instructions: Referral Speech Therapy Routine Comment: 07/25/25 15:10 Consult to Neurology / Tele-Neurology Routine Comment: Consulting Provider: Grupo Brody Attending Provider on DC: Danish Oliva MD Discharging Provider: Luisito Ruelas DO Anticipated date of discharge: 07/30/25 DS: Diagnosis Problem List Completed Was Problem List Reviewed/Reconciled?: Yes Hospital Course Hospital Course Hospital course: Reason for hospitalization: Acute encephalopathy Summary: This patient is a 35-year-old male with past medical history of schizoaffective disorder, psychiatric issues unspecified at this time, hypothyroidism, and hyperlipidemia who presented to [facility] ED on 07/25 from [facility] for an episode of dizziness and being off balance. The patient was admitted for management of acute encephalopathy. Acute encephalopathy is likely secondary to polypharmacy, however stroke workup was pursued given possibility of posterior ischemic stroke. According to the patient's graphics manager and officer, the patient's episode involve the patient leaning over towards the left side, and then having a witnessed fall without loss of consciousness. Patient was noted to mumble his words and initially had responded and only short sentences with few words, while the patient is normally quite talkative but often gets aggressive. Stroke alert was initiated given the concerns of posterior ischemic stroke, and teleneurologist evaluated the patient. CT head and CTA head/neck were negative for acute findings. Patient's MRI brain performed on 07/25 was negative for any acute ischemic stroke. In-house neurology recommended EEG, which showed abnormal epileptiform discharges, but because of patient's acute encephalopathy with elevated ammonia, patient's home Depakote was decreased to 250 mg twice daily. Neurology with then increased the patient's Depakote to 250 mg in the morning and 500 mg in the evening after ammonia levels decrease and patient's mentation improved with L-carnitine. It was noted that the patient had subtherapeutic lithium levels, but neurology deferred changes to medication to psychiatrist in [facility]. In addition, because of the patient's fall and left foot pain with some swelling, foot x-ray was performed on the left leg on 07/25, which showed acute fracture of the left base metatarsals without significant displacement. Orthopedic surgery recommended against surgery, so walking boot was ordered for the patient and the patient was advised to follow-up with outpatient podiatry. Patient would have been discharged earlier, however patient noted suicidal ideation to both nursing and medical staff. Crisis evaluation was done on 07/30 as the patient has not had a bowel movement for several days, but finally had a bowel movement after mixture of senna, MiraLAX, and lactulose on 07/29. Patient was cleared to be discharged after crisis evaluation with recommendations of close follow-up by [facility] with safety planning. In 07/30, the patient had stable vitals and stable labs, so patient was medically cleared to be discharged back to [facility]. Discharge Recommendations: - Follow up with PCP within 1 week of discharge - Continue rest of medications as previously prescribed - Return to the ED or call EMS if symptoms return and/or worsen - Noted to have hypercalcemia with normal PTH, follow-up outpatient regarding parathyroid adenoma versus [facility] - Continue L-carnitine 1500 mg daily for total 3 months, end date 10/26 - Take Depakote 250 mg in the morning and 500 mg in the evening - Please follow-up with psychiatrist at [facility] regarding subtherapeutic lithium - Close monitoring and safety planning with [facility] regarding suicidal ideation - Please discontinue taking atorvastatin as lipid panel did not show significant need for statins - Please follow-up with outpatient neurology within 2 weeks If you don't have a PCP, you can make an appointment at the [facility]: [address] [place] [address] Hospital Diagnoses: #Acute encephalopathy #Concern for polypharmacy #Stroke ruled out #Seizures #Sinus tachycardia #Schizoaffective disorder #Extensive psychiatric disorder history #Acute fracture of left fifth metatarsal #Hypothyroidism #Hypercalcemia Patient plan of care was discussed with attending physician Dr. Hazel Ruelas, PGY-1 Status at Discharge Functional status at discharge: independent ambulation Overall status at discharge: patient is back to baseline Time Spent with Patient Time attestation: Total time spent providing and/or coordinating discharge services: Time spent: Greater than 30 minutes Exam Vital Signs Temp Pulse Resp BP Pulse Ox O2 Del Method 98.0 F 86 19 115/76 95 Room Air 07/30/25 08:00 07/30/25 08:00 07/30/25 08:00 07/30/25 08:00 07/30/25 08:00 07/30/25 08:00 Narrative Exam Physical Exam: General: Alert, no acute distress. Skin: Warm, dry, intact. Head: Normocephalic, atraumatic. Eye: Normal conjunctiva, PERRL. Cardiovascular: Regular rate and rhythm, no murmur, +S1/S2. Respiratory: Lungs are clear to auscultation, respirations unlabored, no crackles, no wheezing. Gastrointestinal: Soft, nontender, non-distended. No guarding or rebound tenderness. Extremities: No edema, no cyanosis, no clubbing. Left foot mildly swollen. Neuro: No focal deficits observed. Conversant, moving all extremities. No overt cerebellar signs/incoordination. Psychiatric: Cooperative, flat affect. Discharge Plan Plan Patient Disposition: Xfer Other Facility Pt Being Transferred to: Other-Specify in comment Disposition Comment: [facility] Patient condition on transfer: Stable Care Plan Goals: Your Divalproex dose has been changed per neurology recommendations: Please take Divalproex 250mg by mouth in the morning and Divalproex 500mg by mouth at night Take L-carnitine 1,500mg by mouth once a day for 3 months for valproic acid toxicity Stop taking atorvastatin as your lipid panel is unremarkable and you do not have history of CVA Continue all other home medications as prescribed Please follow-up with your PCP and psychiatrist at the [facility] after discharge If your symptoms worsen or if you develop new chest pain, shortness of breath, seizure lasting >2 minutes or severe headache - please come back to the ED immediately. Prescriptions/Referrals Prescriptions/Med Rec: New divalproex 500 mg Tablet,Delayed Release (Dr/Ec) 500 mg PO HS 30 Days Qty: 30 0RF divalproex 125 mg Tablet,Delayed Release (Dr/Ec) 250 mg PO QAM 30 Days Qty: 60 0RF levocarnitine (with sugar) 100 mg/mL Solution 1,500 mg PO QDAY 90 Days Qty: 500 2RF Continued acetaminophen 325 mg tablet 650 mg PO Q6H PRN (Reason: fever or pain) fluticasone propionate [Allergy Relief (fluticasone)] 50 mcg/actuation spray,suspension 1 spray intranasal QDAY PRN (Reason: allergy symptoms) Rx Instructions: administer into each nostril citalopram 20 mg tablet 20 mg PO QDAY magnesium hydroxide [Milk of Magnesia] 400 mg/5 mL suspension 30 ml PO QDAY PRN (Reason: constipation) olopatadine 0.1 % drops 1 drp ophthalmic (eye) BID Rx Instructions: separate doses by at least 6-8 hours clozapine 200 mg tablet 200 mg PO BID levothyroxine 75 mcg capsule 75 mcg PO QDAY atropine 0.01 % drops 1 drp ophthalmic (eye) TID Patient Comments: sublingual at 0800 1200 1999 clozapine 50 mg tablet 50 mg PO DAILY Patient Comments: 0800 olanzapine 10 mg tablet 10 mg PO QDAY famotidine 20 mg tablet 20 mg PO BID benztropine 1 mg tablet 1 mg PO BID lithium carbonate 300 mg tablet 900 mg PO QDAY Patient Comments: at 8pm docusate sodium 100 mg tablet 100 mg PO TID Patient Comments: at 0800, 1200 2000 loratadine 10 mg tablet 10 mg PO QDAY Discontinued atorvastatin 20 mg PO DAILY divalproex 500 mg tablet,delayed release (DR/EC) 500 mg PO BID Referrals: William Matson MD [Primary Care Provider] Patient/Caregiver Discharge Instructions Education Materials: ED Seizure, Recurrent (Adult), ED Seizure New Onset Unknown ... Print Language: Kosovan Stand Alone Forms: Jaleesa Award Info., Patient Portal Info Letter Discharge Order Discharge Orders: Discharge (Routine); Ordered 07/30/25 Ordered By: Gabo Ruff Quality Discharge Quality Measures VTE prophylaxis Attestestation Attestation I have examined the patient, reviewed labs and imaging findings, discussed the case with the resident(s), and reviewed entered orders. I agree with the plan of care as outlined in this note. Time Spent: [address] Hazel MD
[2025-07-30 09:54] LABS: Basophils # (Auto) 0.1 Thou/mm3 (0.0-0.2); Basophils % (Auto) 1 % (0-2.5); Eosinophils # (Auto) 0.6 Thou/mm3 (0.0-0.5); Eosinophils % (Auto) 10 % (0-10); Hematocrit 41.0 % (41.0-53.0); Hemoglobin 13.0 g/dL (13.5-16.0); Immature Granulocytes Auto 0.05 Thou/mm3 (0.00-0.00); Lymphocytes # (Auto) 1.7 Thou/mm3 (1.0-4.8); Lymphocytes % (Auto) 27 % (10-50); Mean Corpuscular HGB Conc 31.7 g/dl (31.0-37.0); Mean Corpuscular Hemoglobin 30.9 pg (25.0-35.0); Mean Corpuscular Volume 97 fL (80-100); Monocytes # (Auto) 0.5 Thou/mm3 (0.0-0.8); Monocytes % (Auto) 8 % (0-12); Neutrophils # (Auto) 3.4 Thou/mm3 (1.8-7.7); Neutrophils % (Auto) 54 % (37-80); Nucleated Red Blood Cell # 0.00 Thou/mm3 (0.00-0.00); Nucleated Red Blood Cell % 0 /100 WBC (0); Platelet Count 189 Thou/mm3 (140-440); RDW Standard Deviation 45.4 fL (35.1-43.9); Red Blood Count 4.21 Miln/mm3 (4.50-5.90); White Blood Count 6.3 Thou/mm3 (3.8-10.6)
[2025-07-30 10:12] LABS: Alanine Aminotransferase 22 U/L (10-49); Albumin, Serum 4.2 gm/dL (3.5-5.0); Albumin/Globulin Ratio 1.6 (1.2-2.2); Alkaline Phosphatase 66 U/L (46-116); Anion Gap 10 (7-16); Aspartate Amino Transferase 20 U/L (0-34); BUN/Creatinine Ratio 6 Ratio (12-20); Bilirubin,Total 0.3 mg/dL (0.3-1.2); Blood Urea Nitrogen < 5 mg/dL (9-23); Calcium 9.5 mg/dL (8.3-10.6); Calcium (Corrected) 9.5 mg/dL (8.5-10.1); Carbon Dioxide 23.1 mMol/L (20.0-31.0); Chloride 109 mMol/L (98-107); Creatinine (Component) 0.9 mg/dL (0.6-1.3); Estimated Creatinine Clearance 144.4 mL/min (>60); Globulin 2.6 gm/dL (2.3-3.5); Glucose 120 mg/dL (74-106); Osmolality,Calculated 281 (275-295); Potassium 4.0 mMol/L (3.4-5.1); Sodium 142 mMol/L (136-145); Total Protein 6.8 gm/dL (5.7-8.2); eGFR > 60 See Note
--- NOTE | 2025-07-30 11:31 | PC.SS ---
PARTS FACILITATOR notified by resident that patient has produced bowel, patient is medically cleared for mental health evaluation. PARTS FACILITATOR notified ED coordinator that patient has been medically cleared for mental health evaluation.
[2025-07-30 12:00] VITALS: BP 120/82; PULSE 90; RESP 18; TEMP 37; O2SAT 96
--- NOTE | 2025-07-30 12:18 | PC.CC ---
1200-Pt is a 35 yo male who was brought in the hospital due to medical reasons and when he was assessed, he disclosed SI. ASW Marisol Hurd met with patient [id number] to complete assessment. ASW introduced self, role, and reason for assessment. ASW disclosed limits of confidentiality as well. Patient appeared alert and oriented to self, place, and situation. Patient was pleasant; his mood appeared sad as he disclosed he was in pain; his behavior appeared disinhibited with flat affect. Patient?s thought process was linear and organized. No signs of delusions, paranoid or AVH. Pt reported he does not have active SI with plan or intent. Pt reported he will have passive SI but denies it being daily; admits to it being about twice a month. Pt reports he has a vp digital marketing social media and crm, psychiatrist and watch caser at the [facility] where the pt resides. Pt stated he is willing to safety plan for continued care at [facility]. ASW contacted assigned ROSAS Billings [phone] who stated the safety plan will include 24 hour supervision, nursing and psychiatric services. ROSAS Billings reported that after 24 hours of supervision, another psychiatric evaluation will be conducted for continued supervision. The pts psychtechs will also provide addiotional emotional support for the pt upon return to [facility]. ASW staffed this case with DUPLICATING MACHINE SERVICER, Director Magdalena Way and it was decided that the best plan would be to safety plan with the pt and [facility]. Dr. Egan is aware and agreed to the plan. Pt is cleared from .
[2025-07-30 13:04] VITALS: PULSE 92
--- NOTE | 2025-07-30 13:45 | PC.NURSE ---
I spoke with Stephanie @ [facility] [phone] re: pt's discharge orders
--- NOTE | 2025-07-30 14:24 | PC.SS ---
Rounding Note: Plan is for the patient to be d/c to [facility] today.
--- NOTE | 2025-07-30 14:33 | PD.RESPRO ---
Documentation for date of: 07/30/25 Subjective Subjective Interval history: Patient examined at bedside today. No acute overnight events. Patient reports that he wants to go home. He denies any pain at this time. No other complaints at this time. Exam Vital Signs Temp Pulse Resp BP Pulse Ox O2 Del Method 98.6 F 92 18 120/82 96 Room Air 07/30/25 12:00 07/30/25 13:04 07/30/25 12:00 07/30/25 12:00 07/30/25 12:00 07/30/25 12:00 Narrative Exam General: Alert, no acute distress. Skin: Warm, dry, intact. Head: Normocephalic, atraumatic. Eye: Normal conjunctiva, PERRL. Cardiovascular: Regular rate and rhythm, no murmur, +S1/S2. Respiratory: Lungs are clear to auscultation, respirations unlabored, no crackles, no wheezing. Gastrointestinal: Soft, nontender, non-distended. No guarding or rebound tenderness. Extremities: No edema, no cyanosis, no clubbing. Left foot mildly swollen. Neuro: No focal deficits observed. Conversant, moving all extremities. No overt cerebellar signs/incoordination. Psychiatric: Cooperative, flat affect. Objective Labs 07/30/25 08:49 07/30/25 08:49 Labs: Laboratory Results - last 24 hr 07/30/25 08:49 WBC 6.3 RBC 4.21 L Hgb 13.0 L Hct 41.0 MCV 97 MCH 30.9 MCHC 31.7 RDW Std Deviation 45.4 H Plt Count 189 Neut % (Auto) 54 Lymph % (Auto) 27 Thurston % (Auto) 8 Eos % (Auto) 10 Baso % (Auto) 1 Neut # (Auto) 3.4 Lymph # (Auto) 1.7 Thurston # (Auto) 0.5 Eos # (Auto) 0.6 H Baso # (Auto) 0.1 Immature Gran # (Auto) 0.05 H Absolute Nucleated RBC 0.00 Immature Gran % 1 H Nucleated RBC % 0 Sodium 142 Potassium 4.0 Chloride 109 H Carbon Dioxide 23.1 Anion Gap 10 BUN < 5 L Creatinine 0.9 Estim Creat Clear Calc 144.4 eGFR > 60 BUN/Creatinine Ratio 6 L Glucose 120 H Calculated Osmolality 281 Calcium 9.5 Corrected Calcium 9.5 Total Bilirubin 0.3 AST 20 ALT 22 Alkaline Phosphatase 66 Total Protein 6.8 Albumin 4.2 Globulin 2.6 Albumin/Globulin Ratio 1.6 Quality Measures Quality Measures stroke Suspected type of Stroke: Non Acute Last known well (date): 07/25/25 Last known well (time): 08:30 Tenecteplase given: Reason(s) Tenecteplase not given: Outside the time window not given Rehab services: PT evaluation ordered and Speech Language Pathology eval ordered VTE Prophylaxis: not indicated Antithrombotic by day 2:: not indicated (describe) Statin ordered: not ordered Anticoagulation ordered for A-fib or flutter (current or hx): not indicated Assessment & Plan Assessment Current Active Medications: Generic Name Dose Route Start Last Admin Trade Name Freq PRN Reason Stop Dose Admin Acetaminophen 650 mg 07/25/25 15:04 07/29/25 20:55 Acetaminophen 325 Mg Tablet PO 08/24/25 15:03 650 mg Q6H PRN Administration PAIN SCALE 1-3 (mild Aspirin 81 mg 07/26/25 09:00 07/30/25 09:02 Aspirin Ec 81 Mg Tabec PO 08/25/25 08:59 81 mg QDAY KRISTEN Administration Atorvastatin Calcium 40 mg 07/25/25 21:00 07/29/25 20:38 Atorvastatin Calcium 20 Mg Tablet PO 08/24/25 20:59 40 mg HS KRISTEN Administration Benztropine Mesylate 1 mg 07/25/25 21:00 07/30/25 09:02 Benztropine 0.5 Mg Tablet PO 08/24/25 20:59 1 mg BID KRISTEN Administration Citalopram Hydrobromide 20 mg 07/26/25 09:00 07/30/25 09:01 Citalopram 20 Mg Tablet PO 08/25/25 08:59 20 mg QDAY KRISTEN Administration Clozapine 50 mg 07/26/25 09:00 07/30/25 09:04 Clozapine 50 Mg Tablet PO 08/25/25 08:59 50 mg QAM KRISTEN Administration Clozapine 200 mg 07/25/25 21:00 07/30/25 09:04 Clozapine 50 Mg Tablet PO 08/24/25 20:59 200 mg BID KRISTEN Administration Divalproex Sodium 500 mg 07/29/25 21:00 07/29/25 20:[address] 500 Mg Tablet.Dr PO 08/28/25 20:59 500 mg HS KRISTEN Administration Divalproex Sodium 250 mg 07/29/25 09:00 07/30/25 09:02 Divalproex Sod Ec 125 Mg Tabec PO 08/28/25 08:59 250 mg QAM KRISTEN Administration Heparin Sodium (Porcine) 5,000 unit 07/25/25 21:00 07/30/25 09:06 Heparin Sod Inj 5000 Unit/Ml Vial SC 08/08/25 20:59 5,000 unit Q12HR KRISTEN Administration Labetalol HCl 10 mg 07/25/25 16:00 Labetalol Inj 5 Mg/Ml Vial 20 Ml IVP 08/24/25 15:59 Q2HR PRN SBP>220 Protocol Levocarnitine 1,500 mg 07/27/25 15:30 07/30/25 09:02 Levocarnitine Sf Liqd 100 Mg/Ml PO 08/26/25 15:29 1,500 mg QDAY KRISTEN Administration Protocol Levothyroxine Sodium 75 mcg 07/26/25 06:00 07/30/25 06:25 Levothyroxine Sodium 25 Mcg Tablet PO 08/25/25 05:59 75 mcg ACBR KRISTEN Administration [place] Carbonate 900 mg 07/26/25 09:00 07/30/25 09:02 [place] Carb 150 Mg Capsule PO 08/25/25 08:59 900 mg QDAY KRISTEN Administration Olanzapine 10 mg 07/26/25 09:00 07/30/25 09:02 Olanzapine 5 Mg Tablet PO 08/25/25 08:59 10 mg QDAY KRISTEN Administration Sennosides 1 tab 07/28/25 10:30 07/30/25 09:01 Senna Tablet PO 08/27/25 10:29 1 tab QDAY KRISTEN Administration Protocol Plan Assessment: 35-year-old male with past medical history of schizoaffective disorder, psychiatric issues unspecified at this time, hypothyroidism, hyperlipidemia presenting to the ED on 07/25 from [facility] for an episode of dizziness and off balance will be admitted for acute encephalopathy likely secondary to drug interaction versus possible ischemic stroke in the posterior area, will obtain MRI brain and follow-up with neurology recommendations. #Acute encephalopathy #Concern for polypharmacy #Stroke ruled out #Seizures #Sinus tachycardia As stated above, patient presented with episode of fall and dizziness [facility] physician concerned about possible anticholinergic syndrome/toxicity as the patient is on clozapine and benztropine On examination, patient does not have symptoms or signs of anticholinergic syndrome Teleneurology consulted, at bedtime score of 3 CT head and CTA of the head and neck negative for any acute findings Salicylate and acetaminophen levels within normal limits Poison control made aware, low suspicion for anticholinergic syndrome as the patient does not have clinical signs additionally if there were signs it would be GI symptoms which the patient does not have EKG shows sinus rhythm with QTc of 460 MRI brain negative for any acute infarct, demyelinating pattern noted EEG shows multifocal spike and wave pattern Plan: Statin DC'd by primary team Physical therapy and speech eval Head of bed greater than 30, euglycemic and euthermic parameters Depakote 250 mg in the morning and 500 mg in the evening Follow-up Depakote level outpatient #Schizoaffective disorder #Psychiatric history As noted above, patient has a court ordered to be placed at [facility], unsure exactly why at this time Patient on several medications including benztropine 1 mg p.o. at bedtime, citalopram 20 mg p.o. daily Clozapine 250 mg p.o. daily [place] 900 mg p.o. daily and olanzapine 10 mg p.o. daily [place] levels low at 0.88 Abnormal EEG per neurology Ammonia elevated at 67 likely secondary to Depakote, decreased to 17 Plan: Depakote 250 mg in the morning and 500 mg in the evening Continue all other home medications Follow-up on valproate level Patient to follow-up with outpatient psychiatry regarding subtherapeutic lithium Patient to continue L-carnitine for total 3 months (end date 10/26) #Acute fracture of left fifth metatarsal #Hypothyroidism #Hypercalcemia Above handled by primary hospitalist team Patient seen and care discussed with my attending physician, Dr. Mary Grace Dubose, PGY-2 Attending Provider Attestation/Addendum I have seen and examined the patient at the bedside and I agreed with the resident's findings, assessment and plan of care. Patient stayed without having any breakthrough seizures on current combination of medications. Stable from neurology standpoint for discharge back to the facility. I will see him in specialty clinic in 2 weeks
[2025-08-02 06:33] LABS: Valporic Acid (Depak)* 70.6 mg/L (50.0-100.0)
== END 2025-07-30 13:55 | disposition other institution (70) | DRG 52 ==
LOC: SERX 14:06 → SERHOLD 15:15 → S2NX 16:41 → S3SX 07-26 12:55
PROVIDERS: Admitting Provider Student in an Organized Health Care Education/Training Program; Emergency Provider Family Medicine; PCP Family Medicine; Visit Provider Student in an Organized Health Care Education/Training Program
DX: G92.8 Other toxic encephalopathy (principal); F25.9 Schizoaffective disorder, unspecified; E03.9 Hypothyroidism, unspecified; F31.9 Bipolar disorder, unspecified; R00.0 Tachycardia, unspecified; G40.909 Epilepsy, unspecified, not intractable, without status epilepticus; E83.52 Hypercalcemia; E78.5 Hyperlipidemia, unspecified; F39 Unspecified mood [affective] disorder; F91.8 Other conduct disorders; R45.851 Suicidal ideations; S92.352A Displaced fracture of fifth metatarsal bone, left foot, initial encounter for closed fracture; W19.XXXA Unspecified fall, initial encounter; Z79.899 Other long term (current) drug therapy; Z88.0 Allergy status to penicillin; Z88.8 Allergy status to other drugs, medicaments and biological substances
CPT/HCPCS: 36415; 70450; 70496; 70498; 70544; 73630; 80048; 80053; 80061; 80164; 80178; 80307; 80320; 80329; 81001; 82140; 83036; 83735; 83970; 84145; 84439; 84443; 84484; 85025; 85610; 85730; 92610; 93005; 93225; 93306; 95816; 96127; 96361; 96374; 97162; 99285; A4649; J1644; J2250; J7030; Q9967; A9270; G0480